=== PATIENT | female | born 1945 | race Caucasian/White ===

== ENCOUNTER 2023-05-27 07:50 | Outpatient (CLI) | payer MEDICARE, OTHER, SELFPAY ==
--- NOTE | 2023-05-27 07:52 | FL_ITS ---
WS: [id number] Upper GI series with air contrast, 05/27/2023 Clinical Data: EPIGASTRIC PAIN/NAUSEA/HX OF HIATAL HERNIA REPAIR Fluoroscopy time: 1.6 minutes Spot films 27 Comparison: None. Findings: The patient swallowed the barium and it flowed normally through the hypopharynx. No aspiration or pen etration occurred. The esophagus showed normal peristalsis. At the gastroesophageal junction there is deformity which may be a result of the patient's previous surgery. There was a reduction in size of the gastroesophageal opening with adjacent surgical clips. No reflux could be seen. No ulceration, ma ss, polyp, fistula or erosion was seen. The barium passed into the stomach. The stomach is well distended without polyp, mass, ulcer or extri nsic deformity. The barium then proceeded into the duodenal bulb without hesitation. No duodenal ulce r could be seen. The descending duodenum filled normally and there was a duodenal diverticulum. There are clips in the right upper quadrant from a cholecystectomy. Impression: 1. Surgery at the gastroesophageal junction 2 reduced the size of the opening and no reflux or obstru ction was seen. 2. Negative stomach and duodenal bulb.
== END 2023-05-27 07:51 | disposition home or self-care (01) ==
LOC: RAD 07:50
PROVIDERS: PCP Family Medicine; Visit Provider Surgery
DX: R10.13 Epigastric pain (principal); Z98.890 Other specified postprocedural states
CPT/HCPCS: 74240

== ENCOUNTER 2024-10-04 11:21 | Outpatient (CLI) | payer MEDICARE, OTHER, SELFPAY ==
--- NOTE | 2024-10-04 11:27 | MM_ITS ---
WS: [id number] BILATERAL SCREENING DIGITAL TOMOSYNTHESIS MAMMOGRAM WITH CAD HISTORY: SCREENING COMPARISON: 08/16/2023, 07/08/2022 Bilateral CC and MLO views with tomosynthesis and synthetic mammography submitted. Computer aided detection analyzed. Breast composition: There are scattered areas of fibroglandular density. No suspicious masses, microcalcifications or architectural distortion. Benign coarse calcifications and arterial calcifications in each breast. MM/MM scr tomosynthesis [id number] IMPRESSION: BI-RADS: 2 - Benign. FOLLOW UP: 1 Year Follow-up
== END 2024-10-04 11:22 | disposition home or self-care (01) ==
LOC: RAD 11:23
PROVIDERS: PCP Family Medicine; Visit Provider Family Medicine
DX: Z12.31 Encounter for screening mammogram for malignant neoplasm of breast (principal); R92.323 Mammographic fibroglandular density, bilateral breasts; R92.1 Mammographic calcification found on diagnostic imaging of breast
CPT/HCPCS: 77063; 77067

== ENCOUNTER 2025-01-12 11:33 | Emergency (ER) | payer MEDICARE, OTHER, SELFPAY ==
[2025-01-12 11:38] VITALS: BP 186/74; PULSE 104; RESP 18; TEMP 36.3; O2SAT 97; BMI 23.4
--- OUTSIDE RECORDS SUMMARY | 2025-01-12 11:39 | XMS_ITS | Clinical Summary ---
Author Organization [facility] Address [address] Ricksn: Epic Prelude ADT ILEANA RUIZ [address] Care Team Providers Care Underwear Welter Name Role Phone Joseluis Mario MD Primary Care Provider [phone] Allergies Active Allergy Reactions Criticality Noted Date Comments Ciprofloxacin Hcl Nausea and Vomiting Low 0 Penicillins Anaphylaxis High 06/11/2010 Sulfamethoxazole-Trimethoprim Unknown 2017 Tramadol Nausea and Vomiting Low 06/11/2010 Medications naproxen (NAPROSYN) 500 mg tablet Take 1 Tablet (500 mg) by mouth 2 times daily with meals. 60 Tablet 3 07/20/2017 Active dicyclomine (BENTYL) 10 mg capsule Take 10 mg by mouth. 07/20/2017 Active lisinopriL (PRINIVIL) 10 mg tablet Take 10 mg by mouth daily. 07/20/2017 Active Active Problems Problem Noted Date Diagnosed Date Hand arthritis 07/20/2017 Social History Tobacco Use Types Packs/Day Years Used Date Smoking Tobacco: Every Day Smokeless Tobacco: Never Comments Unknown Sex and Gender Information Value Date Recorded Sex Assigned at Not on file Legal Sex Female 12:11 AM SPINNER FRAME Gender Identity Not on file Sexual Orientation Not on file Last Filed Vital Signs Vital Sign Reading Time Taken Comments Blood Pressure 116/60 07/20/2017 1:56 PM SPINNER FRAME Pulse 80 07/20/2017 1:56 PM SPINNER FRAME Temperature - - Respiratory Rate - - Oxygen Saturation - - Inhaled Oxygen Concentration - - Weight 65.3 kg (144 lb) 07/20/2017 1:56 PM SPINNER FRAME Height 157.5 cm (5' 2 ) 07/20/2017 1:56 PM SPINNER FRAME Body Mass Index 26.34 07/20/2017 1:56 PM SPINNER FRAME Plan of Treatment Health Maintenance Due Date Last Done Comments DTAP/TDAP/TD VACCINES (1 - Tdap) 1965 PNEUMOCOCCAL VACCINE 50+ YEA RS (1 of 1 - PCV) 02/22/1996 ZOSTER VACCINE (1 of 2) 02/22/1996 RSV VACCINE (60+ or ) (1 - 1-dose 75+ series) 2021 OSTEOPOROSIS SCREENING 06/30/2021 06/30/2016, 2016 INFLUENZA VACCINE (#1) 2025 Procedures Procedure Name Priority Date/Time Associated Diagnosis Comments XR DEXA BONE DENSITY AXIAL 1 OR MORE SITES Routine 06/30/2016 12:00 AM SPINNER FRAME from Last 3 Months or Most Recently Relevant to Health Maintenance Results * XR DEXA BONE DENSITY AXIAL 1 OR MORE SITES (06/30/2016 12:00 AM SPINNER FRAME) Anatomical Region Laterality Modality Other us Abstract Spg Provider DIAGNOSTIC IMAGING ORDERAB LES Final Result from Last 3 Months or Most Recently Relevant to Health Maintenance Care Teams Underwear Welter Relationship Specialty Start Date End Date Joseluis Mario MD [address] [place] [phone] PCP - General Family Practice 07/20/17
--- OUTSIDE RECORDS SUMMARY | 2025-01-12 11:39 | XMS_ITS | Encounter Summary ---
Author Organization [facility] Address [address] [place] [address] Care Team Providers Care Field Crop Farming Supervisor Name Role Phone ShelbiJoseluis dunham MD Primary Care Provider [phone] Encounter Details Date Type Department Care Team (Latest Contact Info) Description 12/07/2000 Outpatient Historical [facility] [address] [place] [address] Carlin Sargent DO [address] [place] [address] Rheumatism, unspecified and fibrositis (Primary Dx); Other and unspecified nonspecific immunological findings; Pain in joint, multiple sites; Generalized osteoarthrosis, involving hand Social History Tobacco Use Types Packs/Day Years Used Date Smoking Tobacco: Never Assessed Comments Unknown Sex and Gender Information Value Date Recorded Sex Assigned at Not on file Legal Sex Female 3:59 AM REGIONAL ACCOUNT DIRECTOR Gender Identity Not on file Sexual Orientation Not on file documented as of this encounter Plan of Treatment Not on file documented as of this encounter Visit Diagnoses Diagnosis Rheumatism, unspecified and fibrositis- Primary Other and unspecified nonspecific immunological findings Pain in joint, multiple sites Generalized osteoarthrosis, involving hand documented in this encounter Care Teams Field Crop Farming Supervisor Relationship Specialty Start Date End Date Joseluis Mario MD PCP - General Family Practice 07/20/17 documented as of this encounter
--- OUTSIDE RECORDS SUMMARY | 2025-01-12 11:39 | XMS_ITS | Encounter Summary ---
Author Organization [facility] Address [address] [place] [address] Care Team Providers Care Taxi Dancer Name Role Phone Joseluis Mario MD Primary Care Provider [phone] Encounter Details Date Type Department Care Team (Late st Contact Info) Description 12/13/2006 Outpatient Historical [facility] Neurology [address], [address] [place] [address] Josh Leon MD [address] [place] [address] Unspecified Hereditary and Idiopathic Peripheral Neuropathy (Primary Dx) Social History Tobacco Use Types Packs/Day Years Used Date Smoking Tobacco: Never Assessed Comments Unknown Sex and Gender Information Value Date Recorded Sex Assigned at Not on file Legal Sex Female 3:59 AM FLAT IRONER Gender Identity Not on file Sexual Orientation Not on file documented as of this encounter Plan of Treatment Not on file documented as of this encounter Visit Diagnoses Diagnosis Unspecified hereditary and idiopathic peripheral neuropathy- Primary documented in this encounter Care Teams Taxi Dancer Relationship Specialty Start Date End Date Joseluis Mario MD PCP - General Family Practice 07/20/17 documented as of this encounter
--- OUTSIDE RECORDS SUMMARY | 2025-01-12 11:39 | XMS_ITS | Encounter Summary ---
Author Organization [facility] Address [address] Wynn: [place] [address] Care Team Providers Care Resistor Testing Machine Operator Name Role Phone ShelbiJoseluis MD Primary Care Provider [phone] Encounter Details Date Type Department Care Team (Late st Contact Info) Description 12/13/2006 Outpatient Historical Josh Leon MD [address] [place] [address] Social History Tobacco Use Types Packs/Day Years Used Date Smoking Tobacco: Never Assessed Comments Unknown Sex and Gender Information Value Date Recorded Sex Assigned at Not on file Legal Sex Female 3:59 AM GLASS FITTER Gender Identity Not on file Sexual Orientation Not on file documented as of this encounter Plan of Treatment Not on file documented as of this encounter Procedures Procedure Name Priority Date/Time Associated Diagnosis Comments IMMUNOFIXATION Routine 12/13/2006 10:00 AM CDT PROTEIN ELECTROPHORESIS W/REFLEX,SERUM Routine 12/13/2006 10:00 AM CDT documented in this encounter Results * (ABNORMAL) PROTEIN ELECTROPHORESIS, SERUM (12/13/2006 10:00 AM CDT) SPE INTERP INTERFACE SYSTEM Comment: Increased beta fraction. No monoclonal gammopathy detected. See immunofixation report. Interpreted by: Freeman Zhu., Ph.D. PROTEIN TOTAL, SPE 7.30 6.10 - 7.80 g/dL INTERFACE SYSTEM ALBUMIN SPE 3.99 3.50 - 5.30 g/dL INTERFACE SYSTEM ALPHA 1 GLOBULIN SPE .31 0.11 - 0.31 INTERFACE SYSTEM ALPHA 2 GLOBULIN SPE .87 0.58 - 1.16 g/dL INTERFACE SYSTEM BETA GLOBULIN .92(H) 0.59 - 0.88 g/dL INTERFACE SYSTEM GAMMA GLOBULIN 1.22 0.50 - 1.35 g/dL INTERFACE SYSTEM ALBUMIN %, 54.7(L) 57.4 - 65.5 % INTERFACE SYSTEM % ALPHA 1 GLOBULIN 4.2(H) 1.8 - 3.8 % INTERFACE SYSTEM % ALPHA 2 GLOBULIN 11.9 9.5 - 14.3 % INTERFACE SYSTEM % Beta Globulin 12.6(H) 9.1 - 10.9 % INTERFACE SYSTEM % GAMMA GLOBULIN 16.7 8.2 - 16.7 % INTERFACE SYSTEM ALBUMIN/GLOBULIN RATIO 1.21 g/dL INTERFACE SYSTEM 12/13/2006 10:0 0 AM CDT Josh Leon MD CHEMISTRY ORDERABLES Edited Performing Organization Address [facility] de Phone Number INTERFACE SYSTEM Refer to clinic/hospital department * IMMUNOFIXATION (12/13/2006 10:00 AM CDT) [facility] IMMUNOFIXATION INTER FACE SYSTEM Comment: No M Band identified. Normal polyclonal immunoglobulins demonstrated. Interpreted by: Freeman Zhu, Ph.D. 12/13/2006 10:0 0 AM CDT Josh Leon MD CHEMISTRY ORDERABLES Edited Performing Organization Address [facility] de Phone Number INTERFACE SYSTEM Refer to clinic/hospital department documented in this encounter Visit Diagnoses Not on filedocumented in this encounter Care Teams Resistor Testing Machine Operator Relationship Specialty Start Date End Date Joseluis Mario MD PCP - General Family Practice 07/20/17 documented as of this encounter
--- OUTSIDE RECORDS SUMMARY | 2025-01-12 11:40 | XMS_ITS | Encounter Summary ---
Author Organization [facility] Address [address] [place] [address] Care Team Providers Care Business Process Manager Name Role Phone Joseluis Mario MD Primary Care Provider [phone] Encounter Details Date Type Department Care Team (Latest Contact Info) Description 05/08/2007 Outpatient Historical [facility] Neurology [address], [address] [place] [address] Josh Leon MD [address] [place] [address] Other B-Complex Deficiencies (Primary Dx) Social History Tobacco Use Types Packs/Day Years Used Date Smoking Tobacco: Never Assessed Comments Unknown Sex and Gender Information Value Date Recorded Sex Assigned at Not on file Legal Sex Female 3:59 AM CAR RENTAL MANAGER Gender Identity Not on file Sexual Orientation Not on file documented as of this encounter Plan of Treatment Not on file documented as of this encounter Visit Diagnoses Diagnosis Other B-complex deficiencies- Primary documented in this encounter Care Teams Business Process Manager Relationship Specialty Start Date End Date Joseluis Mario MD PCP - General Family Practice 07/20/17 documented as of this encounter
--- OUTSIDE RECORDS SUMMARY | 2025-01-12 11:40 | XMS_ITS | Encounter Summary ---
Author Organization [facility] Address [address] [place] [address] Care Team Providers Care Factory Focus Technician Name Role Phone ShelbiJoseluis hair MD Primary Care Provider [phone] Encounter Details Date Type Department Care Team (Late st Contact Info) Description 12/20/2006 Outpatient Historical [facility] Josh Leon MD [address] [place] [address] Unspecified Hereditary and Idiopathic Peripheral Neuropathy (Primary Dx) Social History Tobacco Use Types Packs/Day Years Used Date Smoking Tobacco: Never Assessed Comments Unknown Sex and Gender Information Value Date Recorded Sex Assigned at Not on file Legal Sex Female 3:59 AM ROOFER HELPER Gender Identity Not on file Sexual Orientation Not on file documented as of this encounter Plan of Treatment Not on file documented as of this encounter Procedures Procedure Name Priority Date/Time Associated Diagnosis Comments MISCELLANEOUS LAB TEST Routine 7 12:33 PM CDT documented in this encounter Results * MISCELLANEOUS LAB TEST (12/20/2006 12:33 PM CDT) MISCELLANEOUS LAB TEST INTERFACE SYSTEM Comment: SENSORY NEURO PORFILE SENT TO [facility] SEE SEP REPORT 12/20/2006 12:3 3 PM CDT us Josh Leon MD CHEMISTRY ORDERABLES Edited INTERFACE SYSTEM Refer to clinic/hospital department documented in this encounter Visit Diagnoses Diagnosis Unspecified hereditary and idiopathic peripheral neuropathy- Primary documented in this encounter Care Teams Factory Focus Technician Relationship Specialty Start Date End Date Joseluis Mario MD PCP - General Family Practice 07/20/17 documented as of this encounter
--- OUTSIDE RECORDS SUMMARY | 2025-01-12 11:40 | XMS_ITS | Clinical Summary ---
Author Organization [facility] Address [address] [place] [address] Care Team Providers Care Home Health Billing Specialist Name Role Phone Joseluis Mario MD Primary Care Provider [phone] Allergies Active Allergy Reactions Criticality Noted Date Comments Ciprofloxacin Hcl Nausea and Vomiting Low 0 Penicillins Anaphylaxis High 06/11/2010 Sulfamethoxazole-Trimethoprim Unknown 2017 Tramadol Nausea and Vomiting Low 06/11/2010 Medications fluticasone-ella meterol (ADVAIR DISKUS) 250-50 mcg/dose Inhalation DsDv Take 1 Puff by inhalation 2 times daily. Active cyclobenzaprine (FLEXERIL) 10 mg Oral tablet Take 10 mg by mouth 3 times daily as needed. Active hydrochlorothia zide 25 mg Oral tablet Take 25 mg by mouth daily. Active estradiol (ESTRACE) 2 mg Oral tablet Take 2 mg by mouth daily. Active omeprazole (PRILOSEC) 20 mg Oral TbEC Take 1 Tab by mouth daily. Active aspirin (BHAVIN) 325 mg Oral tablet Take 81 mg by mouth daily . Active lisinopril (PRINIVIL) 10 mg tablet Take 10 mg by mouth daily. Active dicyclomine (BENTYL) 10 mg capsule Take 10 mg by mouth. Active naproxen (NAPROSYN) 500 mg tablet Take 1 Tablet (500 mg) by mouth 2 times daily with meals. 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 Social History Tobacco Use Types Packs/Day Years Used Date Smoking Tobacco: Every Day Smokeless Tobacco: Never Comments No Sex and Gender Information Value Date Recorded Sex Assigned at Not on file Legal Sex Female 3:59 AM FINANCIAL INSTITUTION MANAGER Gender Identity Not on file Sexual Orientation Not on file Last Filed Vital Signs Vital Sign Reading Time Taken Comments Blood Pressure 116/60 07/20/2017 1:56 PM FINANCIAL INSTITUTION MANAGER Pulse 80 07/20/2017 1:56 PM FINANCIAL INSTITUTION MANAGER Temperature - - Respiratory Rate 20 06/11/2010 11:11 AM FINANCIAL INSTITUTION MANAGER Oxygen Saturation - - Inhaled Oxygen Concentration - - Weight 65.3 kg (144 lb) 07/20/2017 1:56 PM FINANCIAL INSTITUTION MANAGER Height 157.5 cm (5' 2 ) 07/20/2017 1:56 PM FINANCIAL INSTITUTION MANAGER Body Mass Index 26.34 07/20/2017 1:56 PM FINANCIAL INSTITUTION MANAGER Plan of Treatment Health Maintenance Due Date Last Done Comments DTAP/TDAP/TD VACCINES (1 - Tdap) 1965 PNEUMOCOCCAL VACCINE 50+ YEARS (1 of 2 - PCV) 02/21/19 65 ZOSTER VACCINE (1 of 2) 02/22/1996 RSV VACCINE (60+ or ) (1 - 1-dose 75+ series) 2021 OSTEOPOROSIS SCREENING 06/30/2021 06/30/2016 INFLUENZA VACCINE (#1) 2025 Procedures Procedure Name Priority Date/Time Associated Diagnosis Comments XR DEXA BONE DENSITY AXIAL 1 OR MORE SITES Routine 06/30/2016 from Last 3 Months or Most Recently Relevant to Health Maintenance Results * XR DEXA BONE DENSITY AXIAL 1 OR MORE SITES (06/30/2016) Anatomical Region Laterality Modality Other us Abstract Spg Provider DIAGNOSTIC IMAGING ORDERAB LES Final Result from Last 3 Months or Most Recently Relevant to Health Maintenance Insurance MEDICARE PART A AND B [facility] [place] [address] Care Teams Home Health Billing Specialist Relationship Specialty Start Date End Date Shelbi, Joseluis Woods MD PCP - General Family Practice 07/20/17
--- OUTSIDE RECORDS SUMMARY | 2025-01-12 11:40 | XMS_ITS | Encounter Summary ---
Author Organization [facility] Address [address] [place] [address] Care Team Providers Care Music Internship Name Role Phone Joseluis Mario MD Primary Care Provider [phone] Encounter Details Date Type Department Care Team (Late st Contact Info) Description 12/20/2006 Outpatient Historical [facility] Imaging Services [address] [place] [address] Social History Tobacco Use Types Packs/Day Years Used Date Smoking Tobacco: Never Assessed Comments Unknown Sex and Gender Information Value Date Recorded Sex Assigned at Not on file Legal Sex Female 3:59 AM OUTPATIENT COORDINATOR Gender Identity Not on file Sexual Orientation Not on file documented as of this encounter Plan of Treatment Not on file documented as of this encounter Procedures Procedure Name Priority Date/Time Associated Diagnosis Comments MRI LUMBAR W WO CONTRAST Routine 12/20/2006 12:01 AM CDT documented in this encounter Results * MRI LUMBAR W WO CONTRAST (12/20/2006 12:01 AM CDT) Anatomical Region Laterality Modality Spine Other 12/20/2006 12:0 1 AM CDT Narrative 12/20/2006 12:01 AM CDT LUMBAR SPINE MRI WITHOUT AND WITH CONTRAST. History: Bilateral lower extremity numbness. Technique: The examination has been performed without contrast and with 15 ml of Optimark. Findings: No prior studies. Normal height and alignment of the lumbar vertebrae. A small focus of decreased T1 and increased I8aagsam in the right L5 pedicle likely represents a small subcortical degenerative cyst. Marrowsignal is otherwise unremarkable. The conus and cauda equina are normal. The L1-2 and L2-3 levels are unremarkable. L3-4: Mild disc bulge and facet degenerative changes. L4-5: No disc bulge or protrusion. Mild facet degenerative changes. L5-S1: No disc bulge or protrusion. Mild facet degenerative changes. The postcontrast images are unremarkable. Impression: 1. Mild degenerative changes without significant central canal or foraminal stenosis. - Dictated By: Fei Mcfadden M.D. Electronically Signed By: Fei Mcfadden M.D. Date Signed: 12/20/06 Procedure Note 05/17/2009 LUMBAR SPINE MRI WITHOUT AND WITH CONTRAST. History: Bilateral lower extremity numbness. Technique: The examination has been performed without contrast and with 15 ml ofOptimark. Findings: No prior studies. Normal height and alignment of the lumbar vertebrae. A small focus ofdecreased T1 and increased R6hnytck in the right L5 pedicle likely represents a small subcorticaldegenerative cyst. Marrowsignal is otherwise unremarkable. The conus and cauda equina are normal. The L1-2 and L2-3 levels are unremarkable. L3-4: Mild disc bulge and facet degenerative changes. L4-5: No disc bulge or protrusion. Mild facet degenerative changes. L5-S1: No disc bulge or protrusion. Mild facet degenerative changes. The postcontrast images are unremarkable. Impression: 1. Mild degenerative changes without significant central canal orforaminal stenosis. - Dictated By: Fei Mcfadden M.D. Electronically Signed By: Fei Mcfadden M.D. Date Signed: 12/20/06 us Josh Leon MD MR ORDERABLES Final Resul t documented in this encounter Visit Diagnoses Not on filedocumented in this encounter Care Teams Music Internship Relationship Specialty Start Date End Date Shelbi, Joseluis Woods MD PCP - General Family Practice 07/20/17 documented as of this encounter
--- OUTSIDE RECORDS SUMMARY | 2025-01-12 11:40 | XMS_ITS | Encounter Summary ---
Author Organization [facility] Address [address] [place] [address] Care Team Providers Care Sludge Mill Operator Name Role Phone ShelbiJoseluis hair MD Primary Care Provider [phone] Encounter Details Date Type Department Care Team (Latest Contact Info) Description 12/20/2006 Outpatient Historical [facility] Imaging Services [place] [id number] 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) Social History Tobacco Use Types Packs/Day Years Used Date Smoking Tobacco: Never Assessed Comments Unknown Sex and Gender Information Value Date Recorded Sex Assigned at Not on file Legal Sex Female 3:59 AM MULTI SITE LEASING CONSULTANT Gender Identity Not on file Sexual Orientation Not on file documented as of this encounter Plan of Treatment Not on file documented as of this encounter Visit Diagnoses Diagnosis Displacement of lumbar intervertebral disc without myelopathy- Primary documented in this encounter Care Teams Sludge Mill Operator Relationship Specialty Start Date End Date Joseluis Mario MD PCP - General Family Practice 07/20/17 documented as of this encounter
--- OUTSIDE RECORDS SUMMARY | 2025-01-12 11:40 | XMS_ITS | Encounter Summary ---
Author Organization [facility] Address [address] [place] [address] Care Team Providers Care Airline Reservation Agent Name Role Phone Joseluis Mario MD Primary Care Provider Encounter Details Date Type Department Care Team (Late st Contact Info) Description 03/24/2007 Outpatient Historical [facility] Neurology [address] [place] [address] Josh Leon MD [address] [place] [address] Hered Periph Neuropathy (Primary Dx) Social History Tobacco Use Types Packs/Day Years Used Date Smoking Tobacco: Never Assessed Comments Unknown Sex and Gender Information Value Date Recorded Sex Assigned at Not on file Legal Sex Female 3:59 AM REHAB TECHNICIAN Gender Identity Not on file Sexual Orientation Not on file documented as of this encounter Plan of Treatment Not on file documented as of this encounter Visit Diagnoses Diagnosis Hered periph neuropathy- Primary Hereditary peripheral neuropathy documented in this encounter Care Teams Airline Reservation Agent Relationship Specialty Start Date End Date Joseluis Mario MD PCP - General Family Practice 07/20/17 documented as of this encounter
--- NOTE | 2025-01-12 12:00 | XRR_ITS ---
PROCEDURE INFORMATION: Exam: XR Chest Exam date and time: 01/12/2025 12:12 PM Age: 79 years old Clinical indication: Fluid retention; Pedal edema TECHNIQUE: Imaging protocol: Radiologic exam of the chest. Views: 1 view. COMPARISON: No relevant prior studies available. FINDINGS: Lungs: Mild opacities at the left lung base. Focal linear scar or discoid atelectasis in the left midlung. Pleural spaces: Small right pleural effusion. Heart/Mediastinum: Unremarkable. No cardiomegaly. Bones/joints: Unremarkable. Intraperitoneal space: Surgical clips in the right upper quadrant. XR/XR chest 1V portable [id number] IMPRESSION: Small right pleural effusion and mild opacities at the left lung base.
--- NOTE | 2025-01-12 12:00 | W.ED.EXTPRO ---
HPI - Extremity Problem General: Chief complaint: Extremity Problem,Nontraumatic Stated complaint: pain in both legs Time Seen by Provider: 01/12/25 11:46 History of Present Illness: Patient presents with bilateral lower extremity swelling and skin changes that have been ongoing for approximately 2-3 months. The patient reports that previous providers diagnosed this as cellulitis and prescribed multiple courses of antibiotics (reportedly 'two rounds') without improvement. Patient denies fever but reports experiencing chills. The swelling extends to the knees, which the patient describes as 'terrible.' The condition has been present for about a month according to the patient. Patient denies weight gain despite the significant edema. Patient reports that their current provider has not prescribed diuretics due to low sodium levels, though the exact value is unknown. The patient expresses dissatisfaction with current treatment, stating that their provider has changed blood pressure medications three times and prescribed three different antibiotics without resolution of symptoms. Related Data Home Medications ?Medication ?Instructions ?Recorded ?Confirmed aspirin 81 mg tablet,delayed 81 mg PO DAILY 04/21/20 04/21/20 release (Adult Low Dose Aspirin) estradiol 1 mg tablet 1 mg PO DAILY 04/21/20 04/21/20 ferrous fumarate 325 mg (106 mg PO 04/21/20 04/21/20 iron) tablet fluticasone 250 mcg-salmeterol 50 1 inh inhalation BID 04/21/20 04/21/20 mcg/dose blistr powdr for inhalation (Advair Diskus) lisinopril 20 mg tablet 20 mg PO DAILY 04/21/20 04/21/20 Previous Rx's ?Medication ?Instructions ?Recorded cyclobenzaprine 5 mg tablet 5 mg PO BID PRN muscle spasm #7 04/21/20 tabs furosemide 20 mg tablet (Lasix) 20 mg PO DAILY #30 tabs 01/12/25 Allergies Allergy/AdvReac Type Severity Reaction Status Date / Time amlodipine Allergy ADR-Vomitin Verified 01/12/25 11:38 g ciprofloxacin (From Cipro) Allergy ADR-Vomitin Verified 01/12/25 11:38 g meloxicam Allergy ADR-Vomitin Verified 01/12/25 11:38 g naproxen Allergy ADR-Vomitin Verified 01/12/25 11:38 g Penicillins Allergy ALGY-Difficulty Verified 01/12/25 11:38 Breathing sulfamethoxazole (From Allergy ADR-Vomitin Verified 01/12/25 11:38 Bactrim) g tramadol (From Ultram) Allergy ADR-Vomitin Verified 01/12/25 11:38 g trimethoprim (From Bactrim) Allergy ADR-Vomitin Verified 01/12/25 11:38 g Review of Systems General: Reports: 10 or more systems reviewed and unremarkable except in HPI and below PFSH ED PFSH: Social History Smoking and tobacco/nicotine status: former use of tobacco/nicotine Physical Exam Const: COMMON NORMALS: no acute distress, patient oriented x3, alert and well nourished HENMT: COMMON NORMALS: normocephalic HEAD & SCALP: normocephalic Eye: COMMON NORMALS: Equal, round and reactive pupils present, EOMs intact bilaterally and conjunctivae normal CONJUNCTIVA: Yes conjunctivae normal PUPIL: Yes Equal, round and reactive pupils present Chest: COMMONS NORMALS: normal inspection of the chest and normal palpation of entire chest wall Resp: COMMON NORMALS: normal respiratory effort, No retractions, No use of accessory muscles, clear to auscultation bilaterally and percussion normal AUSCULTATION: clear to auscultation bilaterally PERCUSSION: percussion normal GI: COMMON NORMALS: Normal to inspection, nondistended, normoactive bowel sounds present, Soft to palpation, non-tender, No hepatosplenomegaly present, no masses and no bruits PALPATION: Yes Soft to palpation and Yes No hepatosplenomegaly present Extremity: NARRATIVE EXTREMITY EXAM: Bilateral erythema and 4+ pitting edema to knees Neuro: COMMON NORMALS: patient oriented x3 SENSORIUM/ORIENTATION: Yes alert Skin: COMMON NORMALS: no rashes or lesions noted, turgor normal and no jaundice GENERAL SKIN EXAM: no rashes or lesions noted and turgor normal Course Vital Signs: Vital signs: Vital Signs Temperature 97.4 F L 01/12/25 11:38 Pulse Rate 104 H 01/12/25 11:38 Respiratory Rate 18 01/12/25 11:38 Blood Pressure 186/74 01/12/25 11:38 Pulse Oximetry 97 01/12/25 11:38 MDM - Extremity (Nontraumatic) Medical Decision Making 1. Bilateral Lower Extremity Edema with Stasis Dermatitis: - Clinical presentation more consistent with stasis dermatitis rather than cellulitis - Bilateral involvement and lack of fever make infection less likely - Significant fluid retention noted despite patient's report of stable weight 2. Possible Hyponatremia: - Patient reports history of low sodium levels - Will check comprehensive metabolic panel to assess current sodium status - Need to balance diuretic therapy with electrolyte management 3. Plan: - Order blood work including CBC with differential, CMP, and inflammatory markers - Consider trial of Lasix 40mg for edema management, pending lab results - Discuss compression therapy and elevation strategies - Consider referral to physical therapy for mobility and edema management - Follow up after lab results to adjust treatment plan accordingly Patient's x-ray showed small pleural effusion her presentation really not consistent with infection. Patient likely has at least diastolic heart failure with stasis dermatitis. Will start her on a diuretic and have to monitor renal function and sodium level closely. Start compression hose and follow-up will outline instructions or precautions as discussed. Lab Data 01/12/25 12:12 01/12/25 12:12 Radiology Impressions Chest X-Ray 01/12/25 12:00 IMPRESSION: Small right pleural effusion and mild opacities at the left lung base. Laboratory Results WBC 6.87 10^3/uL (3.29-11.43) 01/12/25 12:12 RBC 3.27 10^6/uL (3.85-5.65) L 01/12/25 12:12 Hgb 10.10 g/dL (11.27-16.99) L 01/12/25 12:12 Hct 30.0 % (36-47) L 01/12/25 12:12 MCV 91.7 fl (85-98) 01/12/25 12:12 MCH 30.9 pg (27-33) 01/12/25 12:12 MCHC 33.7 g/dL (30-55) 01/12/25 12:12 RDW 12.9 % (12.1-15.1) 01/12/25 12:12 Plt Count 253 10^3/cmm (157-399) 01/12/25 12:12 MPV 8.3 fL (7.4-10.4) 01/12/25 12:12 Neut % (Auto) 64.2 % 01/12/25 12:12 Lymph % (Auto) 21.1 % 01/12/25 12:12 [place] % (Auto) 10.9 % 01/12/25 12:12 Eos % (Auto) 2.0 % 01/12/25 12:12 Baso % (Auto) 1.7 % 01/12/25 12:12 Neut # (Auto) 4.40 10^3/uL (1.8-7.7) 01/12/25 12:12 Lymph # (Auto) 1.5 10^3/uL (0.8-4.8) 01/12/25 12:12 [place] # (Auto) 0.8 10^3/uL (0.2-0.9) 01/12/25 12:12 Eos # (Auto) 0.1 10^3/uL (0.0-0.8) 01/12/25 12:12 Baso # (Auto) 0.1 10^3/uL (0.0-0.1) 01/12/25 12:12 Nucleated RBC % (auto) 0 % 01/12/25 12:12 Nucleated RBCs # 0.0 /100WBC 01/12/25 12:12 Sodium 127 mmol/L (136-145) L 01/12/25 12:12 Potassium 4.9 mmol/L (3.5-5.1) 01/12/25 12:12 Chloride 93 mmol/L (98-107) L 01/12/25 12:12 Carbon Dioxide 20 mmol/L (22-29) L 01/12/25 12:12 Anion Gap 18.9 (5-19) 01/12/25 12:12 BUN 15 mg/dL (8-23) 01/12/25 12:12 Creatinine 1.0 mg/dL (0.5-0.9) H 01/12/25 12:12 GFR Calculation Not Reportable 01/12/25 12:12 Glucose 103 mg/dL (65-115) 01/12/25 12:12 Calculated Osmolality 265 mOsm/kg (285-295) L 01/12/25 12:12 Calcium 9.3 mg/dL (8.5-10.5) 01/12/25 12:12 Total Bilirubin 0.5 mg/dL (0.15-1.2) 01/12/25 12:12 AST 29 U/L (0-32) 01/12/25 12:12 ALT 15 U/L (0-33) 01/12/25 12:12 Alkaline Phosphatase 157 U/L (35-105) H 01/12/25 12:12 C-Reactive Protein 11.5 mg/L (0.0-4.9) H 01/12/25 12:12 NT-Pro-B Natriuret Pep 6496 pg/mL (0-450) H 01/12/25 12:12 Total Protein 7.1 g/dL (6.6-8.7) 01/12/25 12:12 Albumin 3.8 g/dL (3.5-5.2) 01/12/25 12:12 Globulin 3.3 g/dL (1.3-4.6) 01/12/25 12:12 No radiology studies performed this visit Discharge Plan Discharge Patient Disposition: Home Clinical Impression: Lower extremity edema, Chronic stasis dermatitis Condition: Stable Prescriptions: New furosemide [Lasix] 20 mg tablet 20 mg PO DAILY Qty: 30 0RF No Action aspirin [Adult Low Dose Aspirin] 81 mg tablet,delayed release (DR/EC) 81 mg PO DAILY lisinopril 20 mg tablet 20 mg PO DAILY estradiol 1 mg tablet 1 mg PO DAILY Rx Instructions: off 1 week; repeat cycle ferrous fumarate 325 mg (106 mg iron) tablet PO fluticasone propion-salmeterol [Advair Diskus] 250-50 mcg/dose blister with device 1 inh INHALATION BID cyclobenzaprine 5 mg tablet 5 mg PO BID PRN (Reason: muscle spasm) Qty: 7 0RF Discharge Orders: Discharge ED (Routine); Ordered 01/12/25 Ordered By: Gera Rob Referrals: Ortega Pastrana MD [Primary Care Provider, Family Practice] Discharge Diet: Regular Discharge Activity: Resume usual activity Patient Instructions: Opioid Safety, Pain Management, Patient Portal & Moris Instructions Activity Restrictions/Additional Instructions: 1. Take Rx as directed. Wear compression hose. Weigh daily. 2. Follow up with PCP - will need repeat BMP / Sodium level in 7-10 days. 3. Return to ED for high fever, general worsening. Print Language: Armenian Coding Level of Care Code ED [employer] Tutor for Dandy Hancock
[2025-01-12 12:28] LABS: Hematocrit 30.0 % (36-47); Hemoglobin 10.10 g/dL (11.27-16.99); Mean Corpuscular HGB Conc 33.7 g/dL (30-55); Mean Corpuscular Hemoglobin 30.9 pg (27-33); Mean Corpuscular Volume 91.7 fl (85-98); Nucleated Red Blood Cells % 0 %; Platelet Count 253 10^3/cmm (157-399); Red Blood Count 3.27 10^6/uL (3.85-5.65); White Blood Count 6.87 10^3/uL (3.29-11.43)
[2025-01-12 12:54] LABS: Alanine Aminotransferase 15 U/L (0-33); Albumin Level 3.8 g/dL (3.5-5.2); Alkaline Phosphatase 157 U/L (35-105); Anion Gap 18.9 (5-19); Aspartate Amino Transferase 29 U/L (0-32); Blood Urea Nitrogen 15 mg/dL (8-23); Calcium 9.3 mg/dL (8.5-10.5); Carbon Dioxide 20 mmol/L (22-29); Chloride 93 mmol/L (98-107); Creatinine Clr Calc Pharmacy 37.4595; Globulin 3.3 g/dL (1.3-4.6); Glucose 103 mg/dL (65-115); NT Pro B Type Natriuretic Pept 6496 pg/mL (0-450); Osmolality Calculated 265 mOsm/kg (285-295); Potassium 4.9 mmol/L (3.5-5.1); Sodium 127 mmol/L (136-145); Total Protein 7.1 g/dL (6.6-8.7)
== END 2025-01-12 14:19 | disposition home or self-care (01) ==
PROVIDERS: Emergency Provider Family Medicine; PCP Family Medicine
DX: R60.0 Localized edema (principal); I87.2 Venous insufficiency (chronic) (peripheral); Z87.891 Personal history of nicotine dependence
CPT/HCPCS: 36415; 71045; 80053; 83880; 85025; 86140; 99284

== ENCOUNTER → 2025-01-14 14:10 | Outpatient (BNVA) | payer MEDICARE, OTHER, SELFPAY | PROVIDERS: Visit Provider Family Medicine | DX: I10 Essential (primary) hypertension (principal); I87.2 Venous insufficiency (chronic) (peripheral); E87.1 Hypo-osmolality and hyponatremia; D64.9 Anemia, unspecified; R60.0 Localized edema | CPT/HCPCS: 80053; 82607; 82728; 83550; 83735; 83880; 84443; 85025 ==

== ENCOUNTER 2025-02-04 13:52 | Oncology outpatient (recurring) (ONCR) | payer MEDICARE, OTHER, SELFPAY ==
[2025-02-04 15:01] LABS: Hematocrit 29.8 % (36-47); Hemoglobin 10.00 g/dL (11.27-16.99); Mean Corpuscular HGB Conc 33.6 g/dL (30-55); Mean Corpuscular Hemoglobin 30.4 pg (27-33); Mean Corpuscular Volume 90.6 fl (85-98); Nucleated Red Blood Cells % 0 %; Platelet Count 213 10^3/cmm (157-399); Red Blood Count 3.29 10^6/uL (3.85-5.65); White Blood Count 6.73 10^3/uL (3.29-11.43)
[2025-02-04 15:20] LABS: Alanine Aminotransferase 20 U/L (0-33); Albumin Level 4.1 g/dL (3.5-5.2); Alkaline Phosphatase 179 U/L (35-105); Anion Gap 13.9 (5-19); Aspartate Amino Transferase 34 U/L (0-32); Blood Urea Nitrogen 25 mg/dL (8-23); Calcium 9.0 mg/dL (8.5-10.5); Carbon Dioxide 24 mmol/L (22-29); Chloride 88 mmol/L (98-107); Creatinine Clr Calc Pharmacy 30.6629; Globulin 3.0 g/dL (1.3-4.6); Glucose 109 mg/dL (65-115); Osmolality Calculated 257 mOsm/kg (285-295); Potassium 4.9 mmol/L (3.5-5.1); Sodium 121 mmol/L (136-145); Total Protein 7.1 g/dL (6.6-8.7)
[2025-02-04 15:35] LABS: Vitamin B12 228 pg/mL (232-1245)
[2025-02-05 08:24] LABS: PROTEIN, TOTAL 7.0 g/dL (6.1-8.1)
[2025-02-06 21:29] LABS: ALPHA 1 GLOBULIN 0.3 g/dL (0.2-0.3); ALPHA 2 GLOBULIN 0.7 g/dL (0.5-0.9); BETA 1 GLOBULIN 0.4 g/dL (0.4-0.6); BETA 2 GLOBULIN 0.4 g/dL (0.2-0.5)
== END 2025-02-24 23:59 | disposition home or self-care (01) ==
PROVIDERS: PCP Family Medicine; Visit Provider Internal Medicine Medical Oncology
DX: D64.9 Anemia, unspecified (principal); Z87.891 Personal history of nicotine dependence
CPT/HCPCS: 36415; 80053; 82607; 82746; 83010; 83615; 84155; 84165; 85025; 85045; 86880; 99204

== ENCOUNTER 2025-02-12 08:49 | Outpatient (CLI) | payer MEDICARE, OTHER, SELFPAY ==
--- NOTE | 2025-02-12 12:00 | USCV_ITS ---
Gladis Frausto Age: 79 Gender: F : 1945 Exam Date: 02/12/2025 09:10 Ordering Phys: Talya Pan MD Technologist: MARIANELA [place] [facility] [place]ication: CHF BP: 152 / 65 HR: 79 Rhythm: Sinus Technical Quality: Adequate MEASUREMENTS (Male / Female) Normal Values 2D ECHO LV Diastolic Diameter PLAX 4.7 cm 4.2 - 5.9 / 3.9 - 5.3 cm IVS Diastolic Thickness 0.7 cm 0.6 - 1.0 / 0.6 - 0.9 cm IVS Systolic Thickness 1.2 cm LVPW Diastolic Thickness 1.0 cm 0.6 - 1.0 / 0.6 - 0.9 cm LVPW Systolic Thickness 1.3 cm LVOT Diameter 2.0 cm LV Ejection Fraction 2D Teich 58.5 % LV Ejection Fraction MOD 4C 69.0 % LV Ejection Fraction MOD 2C 72.3 % LV Ejection Fraction 2C AL 74.5 % LA Diameter 4.4 cm RA Systolic Volume 4C AL 43.3 ml RA Systolic Volume 4C MOD 41.7 ml LA Sys Volume AL 72.6 cm cubed LA Sys Volume Index AL 46.2 cm cubed/m squared Aorta at Sinotubular Diameter 2.8 cm IVC Diameter 1.4 cm M-MODE LA Ao Ratio MM 1.5 AV Cusp Separation MM 1.4 cm DOPPLER AV Peak Velocity 157.0 cm/s LVOT Peak Velocity 130.0 cm/s AV Area Cont Eq vti 2.8 cm squared AV Area Cont Eq pk 2.6 cm squared MV Peak Velocity 168.0 cm/s MV Area PHT 5.9 cm squared Mitral E to A Ratio 1.3 TR Peak Velocity 323.0 cm/s TR Peak Gradient 41.7 mmHg TV Peak E Velocity 86.0 cm/s PV Peak Velocity 139.0 cm/s FINDINGS Left Ventricle Normal left ventricular size, systolic function and wall thickness, with no regional wall motion abnormalities. Left ventricular ejection fraction is estimated at 60 %. Grade I/IV diastolic dysfunction (abnormal relaxation filling pattern), normal to mildly elevated filling pressures. Right Ventricle The right ventricle is normal in size and function. Right Atrium The right atrium is normal in size. Left Atrium Moderately increased left atrial size. Mitral Valve Mildly thickened mitral valve. No mitral valve stenosis. Moderate mitral valve regurgitation. Aortic Valve Mild aortic valve calcification. No aortic valve stenosis. Mild aortic valve regurgitation. Tricuspid Valve No tricuspid valve stenosis. Moderate tricuspid valve regurgitation. Pulmonic Valve Mild pulmonary valve regurgitation. Pericardium Normal pericardium without effusion. Aorta Normal ascending aorta dimension. IVC The inferior vena cava appears normal. CONCLUSIONS Normal left ventricular size, systolic function and wall thickness, with no regional wall motion abnormalities. Left ventricular ejection fraction is estimated at 60 %. Grade I/IV diastolic dysfunction (abnormal relaxation filling pattern), normal to mildly elevated filling pressures. Mild aortic valve calcification. No aortic valve stenosis. Mild aortic valve regurgitation. Moderately increased left atrial size. Mildly thickened mitral valve. No mitral valve stenosis. Moderate mitral valve regurgitation. No tricuspid valve stenosis. Moderate tricuspid valve regurgitation. There is no pericardial effusion. Right atrial pressure is around 10 mm of mercury. Meet Knight MD (Electronically Signed) Final Date: 13 February 2025 14:28 S
== END 2025-02-12 08:50 | disposition home or self-care (01) ==
LOC: RAD 08:50
PROVIDERS: PCP Family Medicine; Visit Provider Family Medicine
DX: R60.0 Localized edema (principal); I87.2 Venous insufficiency (chronic) (peripheral); I08.3 Combined rheumatic disorders of mitral, aortic and tricuspid valves
CPT/HCPCS: 93306

== ENCOUNTER 2025-03-04 14:30 | Oncology outpatient (recurring) (ONCR) | payer MEDICARE, OTHER, SELFPAY | END 2025-03-26 23:59 | disposition home or self-care (01) | PROVIDERS: PCP Family Medicine; Visit Provider Internal Medicine Medical Oncology | DX: D64.9 Anemia, unspecified (principal); R03.0 Elevated blood-pressure reading, without diagnosis of hypertension; E87.1 Hypo-osmolality and hyponatremia; Z87.891 Personal history of nicotine dependence; Z79.899 Other long term (current) drug therapy | CPT/HCPCS: 99213 ==

== ENCOUNTER → 2025-03-11 15:58 | Outpatient (BNVA) | payer MEDICARE, OTHER, SELFPAY | PROVIDERS: PCP Family Medicine; Visit Provider Family Medicine | DX: E87.1 Hypo-osmolality and hyponatremia (principal) | CPT/HCPCS: 80053 ==

== ENCOUNTER → 2025-03-21 09:32 | Outpatient (BNVA) | payer MEDICARE, OTHER, SELFPAY | PROVIDERS: PCP Family Medicine; Visit Provider Registered Nurse Neonatal Intensive Care | DX: R39.9 Unspecified symptoms and signs involving the genitourinary system (principal) | CPT/HCPCS: 81000; 87077; 87086; 87184 ==

== ENCOUNTER → 2025-04-22 13:00 | Outpatient (BNVA) | payer MEDICARE, OTHER, SELFPAY | PROVIDERS: PCP Family Medicine; Visit Provider Family Medicine | DX: E87.1 Hypo-osmolality and hyponatremia (principal) | CPT/HCPCS: 80053 ==

== ENCOUNTER 2025-05-28 16:23 | Inpatient (IN) | payer MEDICARE, OTHER, SELFPAY ==
[2025-05-28 16:27] VITALS: BP 132/72; PULSE 97; RESP 16; TEMP 36.8; O2SAT 96; BMI 21.7
--- NOTE | 2025-05-28 17:15 | CTR_ITS ---
PROCEDURE INFORMATION: Exam: CT Head Without Contrast Exam date and time: 05/28/2025 5:34 PM Age: 80 years old Clinical indication: Weakness, extremity; Additional info: Weakness x 1 week TECHNIQUE: Imaging protocol: Computed tomography of the head without contrast. Radiation optimization: All CT scans at this facility use at least one of these dose optimization techniques: automated exposure control; mA and/or kV adjustment per patient size (includes targeted exams where dose is matched to clinical indication); or iterative reconstruction. COMPARISON: No relevant prior studies available. RADIATION DOSE METRICS: Total DLP (mGy-cm): 958.22 FINDINGS: Brain: Age-indeterminate region of decreased attenuation in the left basal ganglia. Correlate clinically for symptoms of acute or subacute stroke. No priors to compare. Periventricular and deep white matter hypodensities compatible with chronic microvascular ischemic changes. No acute intracranial hemorrhage. No midline shift. Cerebral ventricles: No ventriculomegaly. Paranasal sinuses: Visualized sinuses are unremarkable. No fluid levels. Mastoid air cells: No mastoid effusion. Bones: Unremarkable. No acute fracture. Soft tissues: Unremarkable. CT/CT head wo con* [id number] IMPRESSION: Age-indeterminate region of decreased attenuation in the left basal ganglia. Correlate clinically for symptoms of acute or subacute stroke. No priors to compare. Otherwise evaluation with CTA or MRI is recommended.
--- NOTE | 2025-05-28 17:20 | ECG_ITS ---
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 Measurements Intervals [place] Rate: 110 P: 55 PA: 173 QRS: 3 QRSD: 74 T: 52 QT: 308 QTc: 418 Interpretive Statements SINUS TACHYCARDIA POSSIBLE LEFT ATRIAL ENLARGEMENT [-0.1mV P-WAVE IN V1/V2] ABNORMAL RHYTHM ECG No previous ECG available for comparison Electronically Signed On 05-28-2025 18:55:52 SENIOR CLINICAL DATA ANALYST by Sherri Corrales M.D. [id number]
--- OUTSIDE RECORDS SUMMARY | 2025-05-28 17:29 | XMS_ITS | Clinical Summary ---
Author Organization [facility] Address [address] [place] [address] Care Team Providers Care Green End Man Name Role Phone Joseluis Mario MD Primary Care Provider Ebony levy Allergies Active Allergy Reactions Criticality Noted Date [...] on file Legal Sex Female 3:59 AM OPERATIONS WELDER Gender Identity Not on file Sexual Orientation Not on file Last Filed Vital Signs Vital Sign Reading Time Taken Comments Blood Pressure 116/60 07/20/2017 1:56 PM OPERATIONS WELDER Pulse 80 07/20/2017 1:56 PM OPERATIONS WELDER Temperature - - Respiratory Rate 20 06/11/2010 11:11 AM OPERATIONS WELDER Oxygen Saturation - - Inhaled Oxygen Concentration - - Weight 65.3 kg (144 lb) 07/20/2017 1:56 PM OPERATIONS WELDER Height 157.5 cm (5' 2 ) 07/20/2017 1:56 PM OPERATIONS WELDER Body Mass Index 26.34 07/20/2017 1:56 PM OPERATIONS WELDER Plan of Treatment Health Maintenance Due Date [...] Insurance MEDICARE PART A AND B [employer] [facility] [address] Care Teams Green End Man Relationship Specialty Start Date End Date Shelbi, Joseluis Woods MD PCP - General Family Practice 07/20/17
--- OUTSIDE RECORDS SUMMARY | 2025-05-28 17:29 | XMS_ITS | Encounter Summary ---
Author Organization [facility] Address [address] 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 Normal polyclonal immunoglobulins demonstrated. Interpreted by: Freeman Zhu, Ph.D. 12/13/2006 10:0 0 AM CDT Josh Leon MD CHEMISTRY ORDERABLES Edited Performing Organization Address City/State/[facility] Co de Phone Number INTERFACE SYSTEM Refer to clinic/hospital department documented in this encounter Visit Diagnoses Not on filedocumented in this encounter Care Teams Associate Consulting Engineer Relationship Specialty Start Date End Date Joseluis Mario MD PCP - General Family Practice 07/20/17 documented as of this encounter
--- OUTSIDE RECORDS SUMMARY | 2025-05-28 17:29 | XMS_ITS | Encounter Summary ---
Author Organization [facility] Address [address] [place] [address] Care Team Providers Care Recreation Technician Name Role Phone Joseluis Mario MD Primary Care Provider Ebony levy Encounter Details Date Type Department Care Team (Late st Contact Info) Description 03/24/2007 Outpatient Historical [facility] Neurology [address], [address] [place] [address] Josh Leon MD [address] [place] [phone] Hered Periph Neuropathy (Primary Dx) Social History Tobacco Use Types Packs/Day Years Used Date Smoking Tobacco: Never Assessed Comments Unknown Sex and Gender Information Value Date Recorded Sex Assigned at Not on file Legal Sex Female 3:59 AM 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
--- OUTSIDE RECORDS SUMMARY | 2025-05-28 17:29 | XMS_ITS | Encounter Summary ---
Author Organization [facility] Address [address] [place] [address] Care Team Providers Care Fruit And Vegetable Classer Name Role Phone Joseluis Mario MD Primary Care Provider Ebony levy Encounter Details Date Type Department Care Team (Latest Contact Info) Description 05/08/2007 Outpatient Historical [facility] Neurology [address], [address] [place] [address] Josh Leon MD [address] [place] [id number] Other B-Complex Deficiencies (Primary Dx) Social History Tobacco Use Types Packs/Day Years Used Date Smoking Tobacco: Never Assessed Comments Unknown Sex and Gender Information Value Date Recorded Sex Assigned at Not on file 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
--- OUTSIDE RECORDS SUMMARY | 2025-05-28 17:29 | XMS_ITS | Encounter Summary ---
Author Organization [facility] Address [address] [place] [address] Care Team Providers Care Rivet Hole Puncher Name Role Phone Joseluis Mario MD Primary Care Provider Ebony levy Encounter Details Date Type Department Care Team (Late st Contact Info) Description 12/13/2006 Outpatient [place] [facility] [address], [address] [place] [address] Josh Leon MD [address] [place] [id number] Unspecified Hereditary and Idiopathic Peripheral Neuropathy (Primary Dx) Social History Tobacco Use Types Packs/Day Years Used Date Smoking Tobacco: Never Assessed Comments Unknown Sex and Gender Information Value Date Recorded Sex Assigned at Not on file Legal Sex Female 3:59 AM 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
--- OUTSIDE RECORDS SUMMARY | 2025-05-28 17:29 | XMS_ITS | Clinical Summary ---
Author Organization [facility] Address [address] Ricksn: Epic Prelude ADT [place]LEANA RUIZ [address] Care Team Providers Care Custodial Services Manager Name Role Phone ShelbiJoseluis MD Primary Care Provider Ebony levy Allergies [...] on file Legal Sex Female 12:11 AM COOKING SHOW HOST Gender Identity Not on file Sexual Orientation Not on file Last Filed Vital Signs Vital Sign Reading Time Taken Comments Blood Pressure 116/60 07/20/2017 1:56 PM COOKING SHOW HOST Pulse 80 07/20/2017 1:56 PM COOKING SHOW HOST Temperature - - Respiratory Rate - - Oxygen Saturation - - Inhaled Oxygen Concentration - - Weight 65.3 kg (144 lb) 07/20/2017 1:56 PM COOKING SHOW HOST Height 157.5 cm (5' 2 ) 07/20/2017 1:56 PM COOKING SHOW HOST Body Mass Index 26.34 07/20/2017 1:56 PM COOKING SHOW HOST Plan of Treatment Health Maintenance Due Date [...] OR MORE SITES Routine 06/30/2016 12:00 AM COOKING SHOW HOST from Last 3 Months or Most Recently Relevant to Health Maintenance Results * XR DEXA BONE DENSITY AXIAL 1 OR MORE SITES (06/30/2016 12:00 AM COOKING SHOW HOST) Anatomical Region Laterality Modality Other us Abstract Spg Provider DIAGNOSTIC IMAGING ORDERAB LES Final Result from Last 3 Months or Most Recently Relevant to Health Maintenance Care Teams Custodial Services Manager Relationship Specialty Start Date End Date ShelbiJoseluis MD PCP - General Family Practice 07/20/17
--- OUTSIDE RECORDS SUMMARY | 2025-05-28 17:29 | XMS_ITS | Encounter Summary ---
Author Organization [facility] Address [address] [place] [address] Care Team Providers Care Public [employer] Teacher Name Role Phone ShelbiJoseluis dunham MD Primary Care Provider Ebony levy Encounter Details Date Type Department Care Team (Latest Contact Info) Description 12/07/2000 Outpatient Historical [facility] [address] [place] [id number] Carlin Sargnet, DO [address] [facility] [address] [place] [address] Rheumatism, unspecified and fibrositis (Primary Dx); Other and unspecified nonspecific immunological findings; Pain in joint, multiple sites; Generalized osteoarthrosis, involving hand Social History Tobacco Use Types Packs/Day Years Used Date Smoking Tobacco: Never Assessed Comments Unknown Sex and Gender Information Value Date Recorded Sex Assigned at Not on file Legal Sex Female 3:59 AM 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
--- OUTSIDE RECORDS SUMMARY | 2025-05-28 17:30 | XMS_ITS | Encounter Summary ---
Author Organization [facility] Address [address] [place] [address] Care Team Providers Care Terrazzo Finisher Name Role Phone Joseluis Mario MD Primary Care Provider Ebony levy Encounter Details Date Type Department Care Team (Late st Contact Info) Description 12/20/2006 Outpatient Historical [facility] [address] 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 Date Signed: 12/20/06 us Johs Leon MD MR ORDERABLES Final Resul t documented in this encounter Visit Diagnoses Not on filedocumented in this encounter Care Teams Terrazzo Finisher Relationship Specialty Start Date End Date Joseluis Mario MD PCP - General Family Practice 07/20/17 documented as of this encounter
--- OUTSIDE RECORDS SUMMARY | 2025-05-28 17:30 | XMS_ITS | Encounter Summary ---
Author Organization [facility] Address [address] [place] [address] Care Team Providers Care Gaming Investigator Name Role Phone Joseluis Mario MD Primary Care Provider Ebony levy Encounter Details Date Type Department Care Team (Latest Contact Info) Description 12/20/[address] [facility] 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
--- OUTSIDE RECORDS SUMMARY | 2025-05-28 17:30 | XMS_ITS | Encounter Summary ---
Author Organization 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) Social History Tobacco Use Types Packs/Day Years Used Date Smoking Tobacco: Never Assessed Comments Unknown Sex and Gender Information Value Date Recorded Sex Assigned at Not on file 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
--- OUTSIDE RECORDS SUMMARY | 2025-05-28 17:30 | XMS_ITS | Data Portability ---
Author Organization [facility] Tika Anaya [facility] Address [address] [facility] [address] [place] [address] Care Team Providers Care Web Database Developer Name Role Phone JEANETTE PASTRANA Primary Care Provider Assessment No assessment recorded. Plan of Treatment Reminders Order Date Submit Date Provider Last Modified By Organization Details Last Modified Time Details Appointments None recorded. Lab CMP, serum or plasma 2024 025 [facility], [address], [facility], [place], [address], 5 13:48:14 CMP, serum or plasma 2023 024 [facility], [address], [facility], [place], [address], 4 17:13:12 CBC 2023 024 [facility], [address] [facility], [facility], [place], [address], 4 16:30:30 Referral None recorded. Procedures None recorded. Surgeries None recorded. Imaging MRI, brain, w/o contrast 2023 024 [facility], [address] [facility], [place], [address], 4 12:01:26 US, duplex, carotid artery 2023 024 [facility], [address] [place], [address], 4 18:02:01 Medication Orders cephalexin 500 mg capsule 2024 025 [facility], [address] [place], [address], 5 05:01:12 gabapentin 100 mg capsule 2024 025 [facility], [address] [place], [address], 5 11:22:17 nifedipine ER 60 mg tablet,exte nded release 2024 025 [facility], [address] [place], [address], 5 08:55:43 carvedilol 3.125 mg tablet 2023 024 [facility], [address] [place], [address], 12:20:30 Patient TargetsNo targets recorded. Patient InstructionsNo instructions recorded. Reason for Referral None Reported. Results Created Date Observation Date Name Description Value Unit Range Abnormal Flag Note LastModifiedBy Organization Detail LastModifiedTime 06/13/2006/13/2024 CBC WBC 6.2 x10 4.0-10 .5 Not Available [facility] [address] [facility] [address], [place], [address], 06/13/2024 16:30:30 06/13/20 24 06/13/2024 CBC RBC 3.67 x10 3.50-5 .50 Not Available [facility] [address] [facility] [address], [place], [address], 06/13/2024 16:30:30 06/13/20 24 06/13/2024 CBC HGB 11.6 g/dL 12.0-1 6.0 low Not Available [facility] [address] [facility], [place], [address], 06/13/2024 16:30:30 06/13/20 24 06/13/2024 CBC HCT 34.2 % 37.0-4 7.0 low Not Available [facility] [address] [facility], [place], [address], 06/13/2024 16:30:30 06/13/20 24 06/13/2024 CBC MCV 93.3 fL 80.0-9 9.9 Not Available [facility] [address] [facility], [place], [address], 06/13/2024 16:30:30 06/13/20 24 06/13/2024 CBC MCH 31.7 pg 27.0-3 2.0 Not Available [facility] [address] [facility], [place], [address], 06/13/2024 16:30:30 06/13/20 24 06/13/2024 CBC MCHC 34.0 g/dL 32.0-3 6.0 Not Available [facility] [address] [facility], [place], [address], 06/13/2024 16:30:30 06/13/20 24 06/13/2024 CBC RDW 13.5 % 11.5-1 4.5 Not Available [facility] [address] [facility] [address], [place], [address], 06/13/2024 16:30:30 06/13/20 24 06/13/2024 CBC plt 215.2 x10 140.0- 451.0 Not Available [facility] [address] [facility], [place], [address], 06/13/2024 16:30:30 06/13/20 24 06/13/2024 CBC lymphocytes % 24.1 % 20.0-5 0.0 Not Available [facility] [address] [facility] [place], [address], 06/13/2024 16:30:30 06/13/20 24 06/13/2024 CBC granulcytes % 61.1 % 30.0-7 0.0 Not Available [facility] [address] [facility] [address], [place], [address], 06/13/2024 16:30:30 06/13/20 24 06/13/2024 CBC monocytes % 11.4 % 2.0-16 .0 Not Available [facility] [address] [facility], [place], [address], 06/13/2024 16:30:30 06/13/20 24 06/13/2024 CBC granulcytes# 3.8 x10 Not Verna ilable [facility] [address] [facility] [address], [place], [address], 06/13/2024 16:30:30 06/13/20 24 06/13/2024 CBC lymphocytes # 1.5 x10 Not Available [facility] [address] [facility] [address], [place], [address], 06/13/2024 16:30:30 06/13/20 24 06/13/2024 CBC monocytes # 0.7 x10 Not Avai lable [facility] [address] [facility] [address], [place], [address], 06/13/2024 16:30:30 06/13/20 24 06/13/2024 CMP (FEMA LE) glucose 104.0 mg/dL 60.0-9 9.0 high Not Available [facility] [address] [facility] [address], [place], [address], 06/13/2024 17:13:12 06/13/20 24 06/13/2024 CMP (FEMA LE) BUN (blood urea nitrogen) 18.0 mg/dL 10.0-2 6.0 Not Available [facility] [address] [facility] [address], [place], [address], 06/13/2024 17:13:12 06/13/20 24 06/13/2024 CMP (FEMA LE) creatinine (serum) 1.0 mg/dL 0.4-1. 5 Not Available [facility] [address] [facility], [place], [address], 06/13/2024 17:13:12 06/13/20 24 06/13/2024 CMP (FEMA LE) BUN/creatini ne ratio 18.00 ratio Not Available [facility] [address] [facility], [place], [address], 06/13/2024 17:13:12 06/13/20 24 06/13/2024 CMP (FEMA LE) eGFR calculated 57.0 Not Available [facility] [address] [facility], [place], [address], 06/13/2024 17:13:12 06/13/20 24 06/13/2024 CMP (FEMA LE) total protein 7.4 g/dL 6.0-8. 5 Not Available [facility] [address] [facility], [place], [address], 06/13/2024 17:13:12 06/13/20 24 06/13/2024 CMP (FEMA LE) total bilirubin 0.4 mg/dL 0.2-1. 3 Not Available [facility] [address] [facility], [place], [address], 06/13/2024 17:13:12 06/13/20 24 06/13/2024 CMP (FEMA LE) albumin 4.1 g/dL 3.5-5. 5 Not Available [facility] [address] [facility], [place], [address], 06/13/2024 17:13:12 06/13/20 24 06/13/2024 CMP (FEMA LE) globulin 3.3 calc Not Available [facility] [address] [facility], [place], [address], 06/13/2024 17:13:12 06/13/20 24 06/13/2024 CMP (FEMA LE) AST (SGOT) 32.0 U/L 0.0-46 .0 Not Available [facility] [address] [facility], [place], [address], 06/13/2024 17:13:12 06/13/20 24 06/13/2024 CMP (FEMA LE) altv (SGPT) 17.0 U/L 13.0-6 9.0 normal Not Available [facility] [address] [facility], [place], [address], 06/13/2024 17:13:12 06/13/20 24 06/13/2024 CMP (FEMA LE) A/G ratio 1.2 ratio Not Available [facility] [address] [facility], [place], [address], 06/13/2024 17:13:12 06/13/20 24 06/13/2024 CMP (FEMA LE) ALP phos 127.0 U/L 30.0-1 40.0 normal Not Available [facility] [address] [facility], [place], [address], 06/13/2024 17:13:12 06/13/20 24 06/13/2024 CMP (FEMA LE) calcium 9.2 mg/dL 8.4-10 .5 Not Available [facility] [address] [facility] [address], [place], [address], 06/13/2024 17:13:12 06/13/20 24 06/13/2024 CMP (FEMA LE) sodium 131.0 mmol/ L 136.0- 145.0 low Not Available [facility] [address] [facility] [address], [place], [address], 06/13/2024 17:13:12 06/13/20 24 06/13/2024 CMP (FEMA LE) potassium 4.0 mmol/ L 3.5-5. 1 Not Available [facility] [address] [facility] [address], [place], [address], 06/13/2024 17:13:12 06/13/20 24 06/13/2024 CMP (FEMA LE) chloride 95.0 mmol/ L 98.0-1 10.0 abnormal Not Available [facility] [address] [facility] [address], [place], [address], 06/13/2024 17:13:12 06/13/20 24 06/13/2024 CMP (FEMA LE) C02 29.0 mmol/ L 22.0-3 1.0 Not Available [facility] [address] [facility] [address], [place], [address], 06/13/2024 17:13:12 06/13/20 24 06/13/2024 CMP (FEMA LE) anion gap 7.0 calc Not Available [facility] [address] [facility] [address], [place], [address], 06/13/2024 17:13:12 06/13/20 24 06/13/2024 CMP (FEMA LE) osmolality 273.2 calc Not Available [facility] [address] [facility] [address], [place], [address], 06/13/2024 17:13:12 06/06/20 25 11/30/2024 CMP (FEMA LE) glucose 102.0 mg/dL 60.0-9 9.0 high Not Available [facility] [address] [facility], [place], [address], 11/30/2024 13:48:14 12/01/19 25 11/30/2024 CMP (FEMA LE) BUN (blood urea nitrogen) 21.0 mg/dL 10.0-2 6.0 Not Available [facility] [address] [facility], [place], [address], 11/30/2024 13:48:14 12/01/19 25 11/30/2024 CMP (FEMA LE) creatinine (serum) 1.1 mg/dL 0.4-1. 5 Not Available [facility] [address] [facility], [place], [address], 11/30/2024 13:48:14 12/01/19 25 11/30/2024 CMP (FEMA LE) BUN/creatini ne ratio 19.09 ratio Not Available [facility] [address] [facility], [place], [address], 11/30/2024 13:48:14 12/01/19 25 11/30/2024 CMP (FEMA LE) eGFR calculated 51.1 Not Available [facility] [address] [facility], [place], [address], 11/30/2024 13:48:14 12/01/19 25 11/30/2024 CMP (FEMA LE) total protein 7.3 g/dL 6.0-8. 5 Not Available [facility] [address] [facility] [address] [address], [place], [address], 11/30/2024 13:48:14 12/01/19 25 11/30/2024 CMP (FEMA LE) total bilirubin 0.6 mg/dL 0.2-1. 3 Not Available [facility] [address] [facility] [address], [place], [address], 11/30/2024 13:48:14 12/01/19 25 11/30/2024 CMP (FEMA LE) albumin 3.8 g/dL 3.5-5. 5 Not Available [facility] [address] [facility], [place], [address], 11/30/2024 13:48:14 12/01/19 25 11/30/2024 CMP (FEMA LE) globulin 3.5 calc Not Available [facility] [address] [facility], [place], [address], 11/30/2024 13:48:14 12/01/19 25 11/30/2024 CMP (FEMA LE) AST (SGOT) 37.0 U/L 0.0-46 .0 Not Available [facility] [address] [facility], [place], [address], 11/30/2024 13:48:14 12/01/19 25 11/30/2024 CMP (FEMA LE) altv (SGPT) 24.0 U/L 13.0-6 9.0 normal Not Available [facility] [address] [address], [place], [address], 11/30/2024 13:48:14 12/01/19 25 11/30/2024 CMP (FEMA LE) A/G ratio 1.1 ratio Not Available [facility] [address] [address], [place], [address], 11/30/2024 13:48:14 12/01/19 25 11/30/2024 CMP (FEMA LE) ALP phos 146.0 U/L 30.0-1 40.0 abnormal Not Available [facility] [address] [address], [place], [address], 11/30/2024 13:48:14 12/01/19 25 11/30/2024 CMP (FEMA LE) calcium 9.7 mg/dL 8.4-10 .5 Not Available [facility] [address] [facility] [address], [place], [address], 11/30/2024 13:48:14 12/01/19 25 11/30/2024 CMP (FEMA LE) sodium 132.0 mmol/ L 136.0- 145.0 low Not Available [facility] [address] [facility], [place], [address], 11/30/2024 13:48:14 12/01/19 25 11/30/2024 CMP (FEMA LE) potassium 4.8 mmol/ L 3.5-5. 1 Not Available [facility] [address] [facility], [place], [address], 11/30/2024 13:48:14 12/01/19 25 11/30/2024 CMP (FEMA LE) chloride 102.0 mmol/ L 98.0-1 10.0 normal Not Available [facility] [address] [facility], [place], [address], 11/30/2024 13:48:14 12/01/19 25 11/30/2024 CMP (FEMA LE) C02 22.0 mmol/ L 22.0-3 1.0 Not Available [facility] [address] [facility], [place], [address], 11/30/2024 13:48:14 12/01/19 25 11/30/2024 CMP (FEMA LE) anion gap 8.0 calc Not Available [facility] [address] [facility], [place], [address], 11/30/2024 13:48:14 12/01/19 25 11/30/2024 CMP (FEMA LE) osmolality 276.1 calc Not Available [facility] [address] [facility], [place], [address], 11/30/2024 13:48:14 06/19/20 24 06/19/2024 MRI, brain , w/o contr ast No observ ation record ed. [facility] [address] [place], [address], 06/25/2024 10:43:53 06/19/20 24 06/19/2024 US, duple x, carot id arter y No observ ation record ed. [facility] [address] [place], [address], 06/25/2024 10:43:53 07/22/19 25 07/22/2024 CT, head + brain , w/o contr ast No observ ation record ed. [facility] [address] [place], [address], 07/23/2024 11:46:22 10/11/19 25 10/04/2024 MAMMO , scree arthur, digit al, bilat eral No observ ation record ed. [facility] [address] [facility] [address], [place], [address], 10/12/2024 09:55:53 Result Notes None recorded. Problems Name Problem SNOMED Code Status Onset Date Resolution Date Notes Provider Name and Address Organization Details Recorded Time Hypertens aida disorder 88347347 Active 2021 HYPERTENS ION; Impressio n: continue current meds. obtain routine labwork today.; Recorded 2 1:28PM by Jeanette Pastrana MD, Office Visit; Promoted; acuity set as *; Not Available [facility] 3 03:11:06 Menopause present 879814611 Active 2022 MENOPAUSA L SYNDROME; Recorded 3 9:45AM by Sandra Paredes Summary; Promoted; acuity set as *; Not Available [facility] 3 03:11:06 Anemia 697271747 Active 2022 AMBREEN francis, [facility] 3 16:56:28 Essential hypertens ion 78492705 Active 2022 AMBREEN francis, [facility] 3 16:56:38 Fibromyal taj 180923832 Active 2022 AMBREEN francis, [facility] 3 16:56:48 Neuropath y 819208759 Active 2022 Jeanette Pastrana MD [address] [place] [address], [address] , [facility] 5 11:20:11 Fatigue 44509541 Active 2022 Jeanette Pastrana MD [address] [place] [address], [address] , [facility] 3 16:52:44 Dependent edema 941108191 Active 2022 Jeanette Pastrana MD [address] [place] [address], [address] , [facility] 3 16:55:17 Xerostomi a 83628678 Active 2022 Jeanette Pastrana MD [address] [place] [address], [address] , [facility] 3 16:55:38 Contusion of left lower leg 63120138506 299427 Active 2022 Jeanette Pastrana MD [address] [place] [address], [address] , [facility] 3 14:34:59 Osteoarth ritis 663372693 Active 2022 Jeanette Pastrana MD [address] [place] [address], [address] , [facility] 3 14:40:14 Carotid bruit 304062194 Active 2022 Jeanette Pastrana MD [address] [place] [address] , [facility] 3 15:07:17 Acute sinusitis 69518804 Active 2022 Jeanette Pastrana MD [address] [place] [address], [address] , [facility] 3 15:07:31 Malaise and fatigue 945872670 Active 2022 Jeanette Pastrana MD [address] [place] [address], [address] , [facility] 3 15:09:06 Upper abdominal pain 36803910 Active 2022 Jeanette Pastrana MD [address] [place] [address], [address] , [facility] 3 15:09:45 Chronic obstructi ve pulmonary disease 27723681 Active 2022 Jeanette Pastrana MD [address] [place] [address], [address] , [facility] 3 11:59:32 Dysphagia 16607394 Active 2023 Jeanette Pastrana MD [address] [place] [address] , [facility] 4 15:29:47 Easy bruising 670981781 Active 2023 Jeanette Pastrana MD [address] [place] [address], [address] , [facility] 4 15:30:58 Chronic hoarsenes s 61897410040 05 Active 2023 Jeanette Pastrana MD [address] [place] [address], [address] , [facility] 4 15:39:14 New daily persisten t headache 40224748545 9105 Active 2023 Jeanette Pastrana MD [address] [place] [address], [address] , [facility] 4 15:46:11 Carotid artery stenosis 87135076 Active 2023 Jeanette Pastrana MD [address] [place], [place] [address] , [facility] 4 15:47:02 Dizziness 375743252 Active 2023 Jeanette Pastrana MD [address] [place], [place] [address] , [facility] 4 16:00:20 Loss of appetite 50994761 Active 2024 Jeanette Pastrana MD [address] [place] [address], [address] , [facility] 5 18:54:30 Moderate recurrent major depressio n 07083169 Active 2024 Jeanette Pastrana MD [address] [place] [address] , [facility] 5 13:15:44 Periphera l edema 507473868 Active 2024 Jeanette Pastrana MD [address] [place] [address] , [facility] 5 11:34:44 Chronic kidney disease stage 3A 610099676 Active 2024 Jeanette Pastrana MD [address] [place] [address], [address] , [facility] 5 11:36:01 Celluliti s of left lower limb 13268079061 152997 Active 2024 Jeanette Pastrana MD [address] [place] [address], [address] , [facility] 5 09:45:28 Problem Notes None recorded. Procedures Surgical History Date Name Laterality Status Provider Name and Address Organization Details Recorded Time hysterectomy completed [facility] [place] 09/21/2022 17:00:28 cholecystectomy completed [facility] [place] 09/27/2022 16:18:45 Imaging Results None recorded. Procedure Notes None recorded. Medical Equipment None Reported. Allergies Allergen ID Allergen Name Allergen Category Reaction Reaction Severity Criticality Documentation Date Start Date Code Code System Note Provider Name and Address Organization Details Recorded Time 08513 amlodipin e / olmesarta n medicatio n Not available Not available Not available 01/22/2023 01877 15 RxNorm Comme nt: Recor ded 05/11 11:28 AM by Adriana Clement Offic e Visit ; Blu aldrich; Rachel goetz ce: *; Reaso n: Drug aller gy; ; [facility] 4 15:24:03 05348 penicilli n G benzathin e medicatio n Not available Not available Not available 01/22/2023 7982 RxNorm Comme nt: Recor ded 05/11 11:27 AM by Adriana Clement Offic e Visit ; Promo valdemar; Signi sofy ce: *; Reaso n: Drug aller gy; ; Not Available [facility] 3 02:27:21 27818 naproxen sodium medicatio n Not available Not available Not available 01/22/2023 67487 2 RxNorm Comme nt: Recor ded 05/11 11:28 AM by Jaimee Quinonez sa e Visit ; Blu aldrich; Rachel goetz ce: *; Reaso n: Drug aller gy; ; Not Available [facility] 3 02:27:21 609 Cipro medicatio n Not available Not available Not available 09/21/202281673 3 RxNorm [facility] 4 15:24:09 610 Product containin g penicilli n (product) medicatio n Not available Not available Not available 09/21/2022 55775 8001 SNOMED AMBREEN RACQUELNicola [facility] 3 16:55:01 611 Ultram medicatio n Not available Not available Not available 09/21/2022 25635 6 RxNorm AM[facility]EN [facility]ACQUELNicola [facility] 3 16:55:09 612 Bactrim medicatio n Not available Not available Not available 09/21/2022 11587 9 RxNorm [facility] 4 15:24:07 613 meloxicam medicatio n Not available Not available Not available 09/21/2022 79212 RxNorm AMBREEN VARELANicola [facility] 3 16:55:45 615 Naprosyn medicatio n Not available Not available Not available 09/21/2022 2 RxNorm AMBREEN RACQUEL francis [facility] 3 16:56:01 616 amlodipin e medicatio n Not available Not available Not available 09/21/2022 93203 RxNorm Karis Nav francis [facility] 4 15:24:01 16659 Macrobid medicatio n Not available Not available low 11/22/2023 18895 1 RxNorm AMBREENSA CLEMENT tito [facility] 4 15:22:05 20318 Breo medicatio n Not available Not available Not available 10/30/2024 01391 87 RxNorm state s that it cause s her legs to swell . GIOVANNI CASTRO tito [facility] 5 10:59:50 Medications Name Sig Start Date Stop Date Status Note LastModified by Organization Details LastModified Time celecoxib 200 mg capsule Take 1 capsule every day by oral route for 90 days. 11/21 completed Not Available Not Available Not Available cyclobenz aprine 10 mg tablet TAKE 1 TABLET BY MOUTH ONCE DAILY AT BEDTIME 2024 active Not Available Not Available Not Avai lable ketoconaz ole 2 % shampoo APPLY ON THE SKIN DAILY FOR 1 WEEK, THEN USE 2-3 TIMES WEEKLY NEEDED. active Not Available Not Available No t Available clindamyc in HCl 300 mg capsule TAKE 2 CAPSULES BY MOUTH THREE TIMES DAILY FOR 7 DAYS active Not Available Not Available No t Available Iron (ferrous sulfate) 325 mg (65 mg iron) tablet Take 1 tablet every day by oral route. active Not Available Not Available No t Available azithromy safia 250 mg tablet TAKE 1 TABLET BY MOUTH ONCE DAILY FOR 4 DAYS 09/27 completed Not Available Not Available Not Available minocycli ne 100 mg capsule TAKE 1 CAPSULE BY MOUTH TWICE DAILY FOR 5 DAYS 12/25 completed Not Available Not Available Not Available lisinopri l 20 mg tablet TAKE 1 TABLET BY MOUTH ONCE DAILY 06/13 completed Not Available Not Available Not Available prednison e 20 mg tablet TAKE 2 TABLETS BY MOUTH ONCE DAILY IN THE MORNING WITH FOOD 04/20 completed Not Available Not Available Not Available nifedipin e ER 30 mg tablet,ex tended release TAKE 1 TABLET BY MOUTH ONCE DAILY 11/30 completed Not Available Not Available Not Available carvedilo l 3.125 mg tablet Take 1 tablet twice a day by oral route. 06/25 completed Not Available Not Available Not Available estradiol 1 mg tablet TAKE 1 TABLET BY MOUTH ONCE DAILY 06/13 completed Not Available Not Available Not Available imiquimod 5 % topical cream packet APPLY PINHEAD SIZED AMOUNT FOR 5 NIGHTS IN A ROW THEN DISCONTI NUE. COVER WITH A BANDAID AFTER APPLYING . active Not Available Not Available No t Available doxycycli ne monohydra te 100 mg capsule TAKE 1 CAPSULE BY MOUTH TWICE DAILY FOR 10 DAYS 11/21 completed Not Available Not Available Not Available cephalexi n 500 mg capsule Take 1 capsule every 6 hours by oral route for 7 days. 01/08 completed Not Available Not Available Not Available erythromy safia 5 mg/gram (0.5 %) eye ointment APPLY 0.25 INCH OF OINTMENT TO LEFT EYE EVERY EVENING 06/13 completed Not Available Not Available Not Available neomycin- polymyxin -dexameth 3.5 mg/mL-10, 000 unit/mL-0 .1% eye drops INSTILL 1 DROP INTO LEFT EYE ONCE DAILY AT NIGHT active Not Available Not Available No t Available Advair Diskus 250 mcg-50 mcg/dose powder for inhalatio n Inhale 1 puff twice a day by inhalati on route. 06/13 completed Not Available Not Available Not Available hydralazi ne 50 mg tablet TAKE 1 TABLET BY MOUTH THREE TIMES DAILY active Not Available Not Available No t Available gabapenti n 100 mg capsule TAKE 1 CAPSULE BY MOUTH THREE TIMES DAILY active Not Available Not Available No t Available dexametha sone sodium phosphate 4 mg/mL injection solution Inject 1 mL by intramus cular route. 09/26 completed Not Available Not Available Not Available nifedipin e ER 60 mg tablet,ex tended release TAKE 1 TABLET BY MOUTH ONCE DAILY 12/03 completed Not Available Not Available Not Available clobetaso l 0.05 % scalp solution APPLY 1 ML TO THE SCALP DIRECTED DAILY FOR 1 WEEK THEN 2 TIMES PER WEEK NEEDED active Not Available Not Available No t Available lisinopri l 40 mg tablet Take 1 tablet by mouth once daily 2024 active Not Available Not Available Not Avai lable doxycycli ne hyclate 100 mg tablet TAKE 1 TABLET BY MOUTH ONCE DAILY 03/21 completed Not Available Not Available Not Available Ventolin HFA 90 mcg/actua tion aerosol inhaler INHALE 2 PUFFS BY MOUTH EVERY 4 HOURS NEEDED 06/13 completed Not Available Not Available Not Available Adult Low Dose Aspirin 81 mg tablet,de layed release Take 1 tablet every day by oral route. 06/13 completed Not Available Not Available Not Available aspirin daily 04/20 completed 0; Recorded 05/26/20 22 1:25PM by Jeanette Pastrana MD, Office Visit; Not Available Not Available Not Available estradiol 1mg tablet take daily 04/20 completed Not Available Not Available Not Available albuterol sulfate every 4 hours as needed 04/20 completed Recorded 05/26/20 22 1:25PM by Jeanette Pastrana MD, Office Visit; Refill Quantity : 1; Capsule; Not Available Not Available Not Available lisinopri l daily 04/20 completed Recorded 06/16/20 22 11:46AM by Jeanette Pastrana MD, Office Visit; Not Available Not Available Not Available multivita min 1 tab daily active Not Available Not Available No t Available Advair Diskus two times daily 04/20 completed Recorded 06/16/20 22 11:47AM by Jeanette aPstrana MD, Office Visit; Not Available Not Available Not Available Multivita min w/Mineral s, Iron daily 11/21 completed 0; Recorded 05/26/20 22 1:25PM by Jeanette Pastrana MD, Office Visit; Not Available Not Available Not Available Advair HFA 115 mcg-21 mcg/actua tion aerosol inhaler INHALE 1 PUFF BY MOUTH TWICE DAILY 10/30 completed Not Available Not Available Not Available hydrochlo rothiazid e 12.5 mg tablet TAKE 1 TABLET BY MOUTH ONCE DAILY active Not Available Not Available No t Available levocetir izine 5 mg tablet TAKE 1 TABLET BY MOUTH ONCE DAILY 03/21 completed Not Available Not Available Not Available Breo Ellipta 100 mcg-25 mcg/dose powder for inhalatio n INHALE 1 PUFF BY MOUTH ONCE DAILY active Not Available Not Available No t Available albuterol sulfate 90 mcg/actua tion breath activated powder inhaler Inhale 2 puffs every 4 hours by inhalati on route. 07/25 completed Not Available Not Available Not Available Vitals Date Recorded Body height Body mass index (BMI) Body weight Oxygen saturation Heart rate Respiratory rate Body temperature Systolic And Diastolic Provider Name and Address Organization Details Last Updated DateTime 5 154.94 cm 23.2 kg/m2 24603.8 6 g 96 % 109 /min 18 /min 97.3 [degF] 160/64 mm[Hg] [facility] 5 15:12:21 Date Recorded Body height Body mass index (BMI) Body weight Body temperature Oxygen saturation Heart rate Systolic And Diastolic Provider Name and Address Organization Details Last Updated DateTime 5 154.94 cm 23.5 kg/m2 99570.2 5 g 97.5 [degF] 96 % 106 /min 140/82 mm[Hg] [facility] 5 11:05:45 Date Recorded Body height Body mass index (BMI) Body weight Body temperature Oxygen saturation Heart rate Systolic And Diastolic Provider Name and Address Organization Details Last Updated DateTime 5 154.94 cm 23.3 kg/m2 35877.6 6 g 97.9 [degF] 99 % 91 /min 130/60 mm[Hg] [facility] 5 11:14:44 Date Recorded Body height Body mass index (BMI) Body weight Body temperature Oxygen saturation Heart rate Systolic And Diastolic Provider Name and Address Organization Details Last Updated DateTime 5 154.94 cm 23.2 kg/m2 04785.8 6 g 97.6 [degF] 98 % 93 /min 122/60 mm[Hg] [facility] 5 09:27:26 Date Recorded Body height Body mass index (BMI) Body weight Oxygen saturation Heart rate Respiratory rate Body temperature Systolic And Diastolic Systolic And Diastolic Provider Name and Address Organization Details Last Updated DateTime 4 154.94 cm 23.1 kg/m2 01591.9 9 g 98 % 106 /min 16 /min 97.6 [degF] 160/84 mm[Hg] 166/80 mm[Hg] Karis Chopra [facility] 15:23:02 Social History Question Answer Notes LastModified by Organizat ion Details LastModified Time Tobacco Smoking Status Former Smoker Cynthia francis [facility] 12/25/2024 09:34:37 Do You Wear A Helmet When Biking? No Information not available 09/21/2022 Are You Blind Or Do You Have Difficulty Seeing? No Information not available 09/21/2022 What Is Your Level Of Caffeine Consumption? Occasional Information not available 09/21/2022 Are You Deaf Or Do You Have Serious Difficulty Hearing? No Information not available 09/21/2022 What Type Of Diet Are You Following? REGULAR Information not available 10/30/2024 What Was The Date Of Your Most Recent Tobacco Screening? 12/25/2024 [email or web address] Information not available 12/25/2024 What Is Your Relationship Status? Information not available 10/30/2024 Do You Use Your Seat Belt Or Car Seat Routinely? Yes Information not available 09/21/2022 Have You Recently Traveled Abroad? No Information not available 09/21/2022 Do You Have Difficulty Walking Or Climbing Stairs? No Information not available 09/21/2022 Are You Currently In School? No Information not available 09/21/2022 Do You Have Any Dietary Restrictions? No Information not available 10/30/2024 Sex: Unknown Functional Status Question Answer Note LastModified by Organizat ion Details LastModified Time Do you use any illicit or recreational drugs? No Information not available 09/21/2022 What is your level of alcohol consumption? None Information not available 09/21/2022 Are you currently employed? No Information not available 09/21/2022 Do you have transportation difficulties? No Information not available 09/21/2022 Are you able to walk independently without assistance or assistive devices? YESASSIST Information not available 09/21/2022 Do you have difficulty doing errands alone? No Information not available 09/21/2022 Are you able to care for yourself independently? Yes Information not available 09/21/2022 Do you have difficulty dressing, bathing, grooming, or toileting? No Information not available 09/21/2022 Mental Status Question Answer Note LastModified by Organization D etails LastModified Time Do you have difficulty concentrating, remembering or making decisions? No Information no t available 09/21/2022 Family History Relationship Description Onset Age of this Age Resolved Age Notes LastModified by Organization Details LastModified Time Sister Malignant neoplasm of breast tgregg Not available 2022 16:57:32 Sister Diabetes mellitus tgregg Not available 2022 16:58:13 Mother Essential hypertension tgregg Not available 16:57:52 Notes:family history of diff use glioma Medical History No medical history recorded. Gynecological HistoryNo gynecological history recorded. Obstetrics History GPAL:G 0 P 0 0 0 0 Immunizations Vaccine Type Date Status Note Provider Nam e and Address Organization Details Recorded Time Td (adult), 2 Lf tetanus toxoid, preservative free, adsorbed 3 completed Not Available [facility] 12/25/2024 09:18:39 Influenza, high-dose, trivalent, PF 6 completed Not Available [facility] 12/25/2024 09:18:39 zoster recombinant 8 completed Not Available [facility] 12/25/2024 09:18:39 Influenza, split virus, quadrivalent, PF 9 completed Not Available [facility] 12/25/2024 09:18:39 Influenza, split virus, quadrivalent, PF 0 completed Not Available [facility] 12/25/2024 09:18:39 COVID-19, mRNA, LNP-S, PF, 100 mcg/0.5mL dose or 50 mcg/0.25mL dose 1 completed Not Available [facility] 12/25/2024 09:18:39 COVID-19, mRNA, LNP-S, PF, 100 mcg/0.5mL dose or 50 mcg/0.25mL dose 1 completed Not Available [facility] 12/25/2024 09:18:39 Influenza, split virus, quadrivalent, PF 1 completed Not Available [facility] 12/25/2024 09:18:39 COVID-19, mRNA, LNP-S, PF, 100 mcg/0.5mL dose or 50 mcg/0.25mL dose 1 completed Not Available [facility] 12/25/2024 09:18:39 Tdap 2 completed Not Available [facility] 12/25/2024 09:18:39 Influenza, split virus, quadrivalent, PF 2 completed Not Available [facility] 12/25/2024 09:18:39 Influenza, high-dose, quadrivalent, PF 3 completed Not Available [facility] 12/25/2024 09:18:39 Influenza, high-dose, trivalent, PF 4 completed Not Available [facility] 12/25/2024 09:18:39 Past Encounters Encounter ID Performer Location Encounter Start Date Encounter Closed Date Diagnosis/Indication Diagnosis SNOMED-CT Code Diagnosis ICD10 Code Diagnosis IMO Codes Diagnosis Note [id number] Jeanette Pastrana MD [facility] ([facility]) [address] [place] [address] [id number] 09/27/2022 16:30:00 09/28/2022 12:07:03 Fatigue 30867534 R53.83 we will check labs today. May consider home sleep study if labs are normal. Dependent edema 06588822 4 R60.0 discussed feet elevations and compressio n stockings. Xerostomia 31744371 R68. 2 continue with hard candies, gum and add biotene as needed. [id number] Jeanette Pastrana MD [facility] ([facility]) [address] [place] [address] [id number] 11/01/2022 14:04:09 11/01/2022 18:16:51 Contusion of left lower leg [id number] 5616646 S80.12XD check for DVT. Discussed home exercises, leg elevation and ice. Consider PT if not improving. Osteoarthritis 733886019 M19.90 Patient states her pain was better controlled on celebrex. She denies any issues with celebrex when on it previously . [id number] Jeanette Pastrana MD [facility] ([facility]) [address] [place] [address] [id number] 11/03/2022 15:47:11 11/03/2022 17:01:53 [id number] Jeanette Pastrana MD [facility] ([facility]) [address] [place] [address] [id number] 5 04/20/2023 14:38:36 04/22/2023 11:21:38 Carotid bruit 814935302 R09.89 Given the abnormal exam finding we will evaluate this further with ultrasound . Acute sinusitis 07575562 J01.90 This is likely why the patient does not feel well. We will start antibiotic s and provide steroid injection today. Malaise and fatigue 2717 35774 R53.81 We will check labs today. Upper abdominal pain 831 67848 R10.10 Patient does have significan t discomfort in her epigastric area. Commend the patient undergo ED for reevaluati on of this area. Chronic ob structive pulmonary disease 72341057 J44.9 Essential hypertension 41619139 I10 Osteoarthritis 742193016 M19.90 [id number] Jeanette Pastrana MD [facility] ([facility]) [address] [place] [address] [id number] 11/22/2023 15:11:27 11/22/2023 15:51:07 Dysphagia 87810295 R13.10 Will proceed with modified barium swallow given that the difficulty with swallowing solids. Unintentio nal weight loss 967977779 R63.4 Will check labs today. Fatigue 65114324 R53.83 Check B12 level and blood counts given her history of anemia and vitamin B12 deficiency . Easy bruising 642436373 R58 Will check PT/INR today. Patient was encouraged to stop taking aspirin daily. Chronic hoarseness 83452 73326 105 R49.0 Considerin g her dysphagia and hoarseness , will send referral to ENT [id number] Jeanette Pastrana MD [facility] ([facility]) [address] [place] [address] [id number] 03/21/2024 11:40:05 03/21/2024 13:08:09 Essential hypertension 33343583 I10 Increase her lisinopril to 40 mg. Patient was instructed to check her blood pressure daily for 1 week and provide a log of those readings. Fibromyalgia 448367773 M 79.7 Stable Chronic ob structive pulmonary disease 11135072 J44.9 Breathing is doing fairly well on current inhalers. Dependent edema 34146490 4 R60.0 Likely worsened due to elevated blood pressure. Discussed feet elevations and compressio n stockings. [id number] Jeanette Pastrana MD [facility] ([facility]) [address] [place] [address] [id number] 5 06/13/2024 14:57:09 06/13/2024 16:33:53 New daily persistent headache 7666925404 11649 G44.52 Given the new daily persistent headache and family history of brain cancer, it would not be unreasonab le to proceed with imaging. Carotid ar cristine stenosis 83771936 I65.29 Recommend repeating ultrasound given the significan t stenosis and increase dizziness. Essential hypertension 13306153 I10 Will add carvedilol and see if this will help with your blood pressure. Dizziness 460801994 R42 Check labs today. Will evaluate carotid stenosis and obtain MRI as above. [id number] Jeanette Pastrana MD [facility] ([facility]) [address] [place] [address] [id number] 5 07/25/2024 15:00:10 07/25/2024 16:14:52 Essential hypertension 16874824 I10 Patient's blood pressure continues to be elevated systolical ly. The patient has tolerated the nifedipine at 30 mg so we will increase the dose. Fibromyalgia 739772628 M 79.7 Patient reports that she has been having some allover pain. Patient is unsure of what to do for this. The patient has had treatment for fibromyalg ia but did not tolerate the medication well. Dependent edema 03911137 4 R60.0 Continues to have edema that is likely worsened by her blood pressure. It is possible the nifedipine can be contributi ng as well. Encouraged feet elevation and to try compressio n stockings. Loss of appetite 8515874 6 R63.0 That the patient's episode could be related to dropping blood sugars. Urged the patient to Ayde aguirre about eating. Discussed medication s to help increase appetite but the patient declines. Salbador adding nutritiona l supplement s to help increase nutrition. [id number] Jeanette Pastrana MD [facility] ([facility]) [address] [place] [address] [id number] 10/30/2024 10:52:12 10/30/2024 13:07:51 Dependent edema 454804257 R60.0 Continue current interventi ons. Neuropathy 256694065 G62 .9 62021 Will start gabapentin to see if this will help with her neuropathi c pain. Essential hypertension 49664303 I10 Pressures doing better on current medication s. Chronic ob structive pulmonary disease 58844258 J44.9 Breathing is doing fairly well on Advair. She will be a good candidate 340 be able to get this program started for her to help with inhaler cost. [id number] Jeanette Pastrana MD [facility] ([facility]) [address] [place] [address] [id number] 5 11/30/2024 10:57:22 11/30/2024 11:57:13 Peripheral edema 863050651 R60.0 36688 Concerned that the peripheral edema is secondary to the nifedipine . May need to consider other blood pressure medication s. Essential hypertension 37417488 I10 Blood pressure is currently controlled on current medication s. However, if blood pressure medication is causing the edema then the patient would like to change. Chronic ki dney disease stage 3A 383202025 N18.31 [id number] Will check labs today. If labs are normal or stable then we will likely change blood pressure medication s as above. [id number] Jeanette Pastrana MD [facility] ([facility]) [address] [place] [address] [id number] 5 12/25/2024 09:15:44 12/25/2024 10:23:48 Cellulitis of left lower limb 8038532930 8157841 L03.246 2258978 Concerned about infection of the left leg. Recommend starting antibiotic s. Dependent edema 93851687 4 R60.0 The patient continues to struggle with her edema. Has compressio n stockings but states that she cannot get them on because are too tight. Recommend moderate compressio n with appropriat e size compressio n stockings. Prescripti on provided today for the patient to take it to [facility] to obtain appropriat e compressio n stockings. Health Concerns Section Related Observation LastModified by Organization Detai ls LastModified Time None Recorded Concern Status LastModified by Organization Details LastModified Time None Recorded Advance Directives Directive None Recorded Payers Insurance Date Sequence Insurance Name Policy Number Policy Vivas Covered Member ID Vivas Member ID Guarantor Name 12/25/2024 [employer] [place] - [id number] (MEDICARE) Gladis Frausto [id number] Gladis Frausto 12/31/2024 2 [email or web address] - PLAN F (MEDICARE SUPPLEMENT) Gladis Frausto [id number] Gladis Frausto 03/21/2024 2 [employer] [place] Gladis Frausto [id number] Gladis Frausto 12/25/2024 1 [place] Gladis Frausto [id number] Gladis Frausto Notes Date Note Type Note Provider Name and Address Organization Details Recorded Time 06/13/2024 text/html Annual WellnessReported by Patient This is a 79-year-old female who comes in today for routine follow-up. The patient has been monitoring her blood pressure at home and has noticed that her systolic blood pressure is persistently high. The patient does have a new daily persistent headache. She also has associated dizziness with this. Patient reports there is a family history of hereditary brain cancer and the patient is concerned. Jeanette Pastrana MD [address] [place] [address], [phone], [facility] 06/17/2024 12:05:53 07/25/2024 text/html This is a 79-year-old female that comes in today for ER follow-up. The patient had an episode at home where she felt very weak and shaky. The patient states that she had lost control of her limbs and was unable to ambulate. The patient had to go to the ER via ambulance. I did stroke evaluation and it was deemed not to be stroke related. The patient had lab work that was essentially normal. Patient states that her blood pressure was significantly elevated on the top, however the ER records had documented normal blood pressure. Patient continues to have poor appetite and is not eating well. Patient is concerned about increasing lower extremity edema that is painful. Patient denies any significant shortness of breath Jeanette Pastrana MD [address] [place] [address], [phone], [facility] 07/26/2024 18:55:37 10/30/2024 text/html Is a 79-year-old female that comes in today for routine follow-up. She continues to struggle some with edema but overall is manageable. The patient states that she has been having increasing issues with burning pain in legs and feet. States her blood pressure is doing okay on current medications. The patient has been struggling with her COPD management and states that Breo has not been as effective as Advair. The patient states that neither inhaler is affordable due to her insurance. The patient is currently using Advair about every other day and this seems to be working okay for her. Jeanette Pastrana MD [address] [place] [address], [phone], [facility] 11/01/2024 12:28:05 11/30/2024 text/html EdemaReported by PatientHPIFor quality, patient reportslegs do not swell equallyandpainful. For context, patient reportsprior history of edema. For associated symptoms, patient reportsshortness of breath (pt states that she stopped her inhaler d/t $400/month)but reportsno cough,no chest pain, andno palpitations. For location, patient reportsble. For duration, patient reportsconstant. For modifying factors, patient reportsnothing gives relief.ROS as noted in the HPI This 79-year-old female comes in today to discuss peripheral edema. Patient states that she has been having progressive peripheral edema that does not go down at night. Patient states that it is painful. Patient denies any significant shortness of breath. The patient is concerned about her kidneys. Jeanette Pastrana MD [address] [place] [address], [phone], [facility] 12/02/2024 10:05:09 12/25/2024 text/html This is a 79 year old female here today to discuss lower leg pain, swelling and red with warmth. Concerned about cellulitis. Patient states that it is primarily her left leg, however she reports some issues with her right leg Jeanette Pastrana MD [address] [place] [address], [phone], [facility], Tika 12/27/2024 13:10:50 OBGyn Episode No OBEpisode recorded.
--- NOTE | 2025-05-28 17:33 | W.ED.WEAKNES ---
HPI - Weakness General: Chief complaint: Weakness Stated complaint: stroke symptoms Time Seen by Provider: 05/28/25 17:13 History of Present Illness: 80-year-old female who presents to the emergency room complaints of weakness sluggishness particularly on her right side for the last week she has a facial droop she has numbness and tingling on the right side family noticed early the last week she seemed to be having trouble and it became progressively more obvious since then. Has any chest or abdominal pain. Family reports that a year ago they believe she has a stroke she was seen at another hospital she was not admitted they felt she had had a stroke at that time also related that her blood pressure was markedly elevated. No recent fever sweats chills flulike symptoms no cough or shortness of breath Associated symptoms: Denies chest pain, chills, dysuria or fever(s) Related Data Home Medications ?Medication ?Instructions ?Recorded ?Confirmed ferrous fumarate 325 mg (106 mg 65 mg PO DAILY 04/21/20 05/29/25 iron) tablet gabapentin 100 mg capsule 100 mg PO TID 01/14/25 05/29/25 ketoconazole 2 % shampoo 1 applic topical .3 times a week 01/14/25 05/29/25 PRN for the symptoms lisinopril 40 mg tablet 40 mg PO QDAY 01/14/25 05/29/25 mecobalamin (vitamin B12) 1,000 1,000 mcg sublingual DAILY 04/22/25 05/29/25 mcg disintegrating tablet,sublingual aspirin 81 mg tablet 81 mg PO DAILY 05/29/25 05/29/25 clobetasol 0.05 % topical cream 1 applic topical DAILY PRN Itching 05/29/25 05/29/25 cyclobenzaprine 10 mg tablet 10 mg PO BEDTIME 05/29/25 05/29/25 fluticasone 250 mcg-salmeterol 50 1 inh inhalation DAILY 05/29/25 05/29/25 mcg/dose blistr powdr for inhalation (Wixela Inhub) Previous Rx's ?Medication ?Instructions ?Recorded hydralazine 50 mg tablet 50 mg PO TID #240 tabs 02/07/25 atorvastatin 40 mg tablet 40 mg PO BEDTIME #30 tabs 05/30/25 clopidogrel 75 mg tablet (Plavix) 75 mg PO DAILY #60 tabs 05/30/25 furosemide 40 mg tablet See Rx Instructions .Route 06/03/25 .COMPLEX #30 tabs Allergies Allergy/AdvReac Type Severity Reaction Status Date / Time nitrofurantoin (From Allergy Intermediate ADR-Vomitin Verified 05/28/25 16:42 Macrobid) g amlodipine Allergy ADR-Vomitin Verified 05/28/25 16:42 g ciprofloxacin (From Cipro) Allergy ADR-Vomitin Verified 05/28/25 16:42 g meloxicam Allergy ADR-Vomitin Verified 05/28/25 16:42 g naproxen Allergy ADR-Vomitin Verified 05/28/25 16:42 g Penicillins Allergy ALGY-Difficulty Verified 05/28/25 16:42 Breathing sulfamethoxazole (From Allergy ADR-Vomitin Verified 05/28/25 16:42 Bactrim) g tramadol (From Ultram) Allergy ADR-Vomitin Verified 05/28/25 16:42 g trimethoprim (From Bactrim) Allergy ADR-Vomitin Verified 05/28/25 16:42 g Review of Systems Const: Denies: fever(s) or chills Card: Denies: chest pain Resp: Denies: dyspnea GI: Denies: abdominal pain : Denies: dysuria, urinary frequency or urinary urgency Musc: Denies: neck pain or back pain Skin/Breast: Denies: rash PFSH ED PFSH: Medical History Peripheral neuropathy History of blood transfusion Basal cell carcinoma of skin Hypertension, unspecified type Anemia Asthma Surgical History History of cholecystectomy open History of bladder suspension procedure History of Marty fundoplication History of bilateral cataract extraction History of colonoscopy History of lumbar discectomy History of total hysterectomy with bilateral salpingo-oophorectomy (BSO) benign path per report Family History Father Lung cancer Mother Anemia Peripheral vascular disease Aneurysm Social History Smoking and tobacco/nicotine status: never used tobacco/nicotine Quit status (tobacco/nicotine): has quit using Year quit tobacco: 1985 Alcohol intake: never Substance/Drug Use: never Household members: spouse Marital status: Marital status details: 55 years as of 2024 Number of children: 2 Current occupational status: retired 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: [employer] Special 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 needs: No Agree to transfusion: Yes Physical Exam Const: GENERAL APPEARANCE: cooperative and comfortable ORIENTATION/CONSCIOUSNESS: Yes awake HENMT: COMMON NORMALS: normocephalic, atraumatic and hearing grossly normal bilaterally HEAD & SCALP: normocephalic and atraumatic Resp: COMMON NORMALS: normal respiratory effort, No retractions, No use of accessory muscles and clear to auscultation bilaterally AUSCULTATION: clear to auscultation bilaterally Cardio: COMMON NORMALS: regular rate, regular rhythm and No murmurs present (Cardio) RATE: regular rate RHYTHM: regular rhythm GI: COMMON NORMALS: Soft to palpation and No hepatosplenomegaly present AUSCULTATION: Yes normoactive bowel sounds PALPATION: Yes Soft to palpation, No Tenderness to palpation present (GI), No Guarding due to palpation present (GI) and Yes No hepatosplenomegaly present Extremity: COMMON NORMALS: normal to inspection, capillary refill normal, no clubbing, cyanosis or edema, no calf tenderness and no pedal edema Skin: COMMON NORMALS: no rashes or lesions noted GENERAL SKIN EXAM: no rashes or lesions noted Course Vital Signs: Vital signs: Vital Signs Temperature 97.4 F L 05/30/25 11:23 Pulse Rate 78 05/30/25 12:02 Respiratory Rate 18 05/30/25 11:23 Blood Pressure 150/72 05/30/25 12:02 Pulse Oximetry 98 05/30/25 12:02 Oxygen Delivery Me thod Room Air 05/30/25 11:23 MDM - Weakness Medical Decision Making Medical decision making Social determinants: None I reviewed the patient's medical record. I reviewed the patient's current home meds. Alternate historians: Family members Differential diagnosis: CVA generalized weakness and decline Lab Review: No leukocytosis moderate anemia with a hemoglobin of 12 at 10.2. mild acute kidney injury with creatinine of 1.6. Imaging: CT head no acute findings Assessment of risk Level of risk: Moderate/high Hospitalization considerations: Hospitalization for subacute CVA Reexamination: Unchanged Assessment and plan: NIH done 1 patient initially presented. NIH score of 5. Her last known well was approximately 1 week ago. Based on the history given by the family and the findings on exam I do believe patient had an acute CVA however she is well past any window of opportunity for treatment. Will admit for subacute CVA as well as mild acute kidney injury. Have discussed with Dr. Jeffery. Did not get CTA of the head or neck as patient already has mild acute kidney injury and no significant decision point would be made based on findings at this time. Discussed with the family orders written and discussed with hospitalist. Lab Data 05/28/25 18:12 05/29/25 05:[address] 05/28/25 17:15 IMPRESSION: Age-indeterminate region of decreased attenuation in the left basal ganglia. Correlate clinically for symptoms of acute or subacute stroke. No priors to compare. Otherwise evaluation with CTA or MRI is recommended. ADDENDUM: 05/28/25 1800 THIS REPORT CONTAINS FINDINGS THAT MAY BE CRITICAL TO PATIENT CARE. The findings were verbally communicated via telephone conference with BLAISE Marcos 557 pm HUMAN RESOURCE MANAGEMENT INSTRUCTOR on 05/28/2025. The findings were acknowledged and understood. Head MRI 05/29/25 08:00 IMPRESSION: Subacute nonhemorrhagic infarct of the left lentiform nucleus. Head/Neck CTA 05/29/25 20:42 IMPRESSION: No large vessel stenosis or occlusion. IMPRESSION: 1. No large vessel occlusions. 2. Moderate stenoses of the origins of the right and left internal carotid arteries. 3. Variably [id number] multifocal stenoses in the cavernous internal carotid arteries bilaterally. REFERENCES: NASCET CRITERIA. The degree of stenosis in the cervical segment of the internal carotid artery is based on NASCET criteria. Normal is no stenosis. Mild is less than 50% stenosis. Moderate is 50-69% stenosis. Severe is 70% to 99% stenosis. Total occlusion is no detectable patent lumen. Laboratory Results WBC 6.84 10^3/uL (3.29-11.43) 05/28/25 18:12 RBC 3.49 10^6/uL (3.85-5.65) L 05/28/25 18:12 Hgb 10.20 g/dL (11.27-16.99) L 05/28/25 18:12 Hct 31.2 % (36-47) L 05/28/25 18:12 MCV 89.4 fl (85-98) 05/28/25 18:12 MCH 29.2 pg (27-33) 05/28/25 18:12 MCHC 32.7 g/dL (30-55) 05/28/25 18:12 RDW 13.6 % (12.1-15.1) 05/28/25 18:12 Plt Count 187 10^3/cmm (157-399) 05/28/25 18:12 MPV 9.3 fL (7.4-10.4) 05/28/25 18:12 Neut % (Auto) 59.9 % 05/28/25 18:12 Lymph % (Auto) 22.4 % 05/28/25 18:12 [place] % (Auto) 14.2 % 05/28/25 18:12 Eos % (Auto) 2.5 % 05/28/25 18:12 Baso % (Auto) 0.7 % 05/28/25 18:12 Neut # (Auto) 4.10 10^3/uL (1.8-7.7) 05/28/25 18:12 Lymph # (Auto) 1.5 10^3/uL (0.8-4.8) 05/28/25 18:12 [place] # (Auto) 1.0 10^3/uL (0.2-0.9) H 05/28/25 18:12 Eos # (Auto) 0.2 10^3/uL (0.0-0.8) 05/28/25 18:12 Baso # (Auto) 0.1 10^3/uL (0.0-0.1) 05/28/25 18:12 Nucleated RBC % (auto) 0 % 05/28/25 18:12 Nucleated RBCs # 0.0 /100WBC 05/28/25 18:12 Sodium 136 mmol/L (136-145) 05/28/25 18:12 Potassium 4.3 mmol/L (3.5-5.1) 05/28/25 18:12 Chloride 101 mmol/L (98-107) 05/28/25 18:12 Carbon Dioxide 22 mmol/L (22-29) 05/28/25 18:12 Anion Gap 17.3 (5-19) 05/28/25 18:12 BUN 35 mg/dL (8-23) H 05/28/25 18:12 Creatinine 1.6 mg/dL (0.5-0.9) H 05/28/25 18:12 GFR Calculation Not Reportable 05/28/25 18:12 Glucose 98 mg/dL (65-115) 05/28/25 18:12 POC Glucose 101 mg/dL (70-110) 05/28/25 16:33 Calculated Osmolality 290 mOsm/kg (285-295) 05/28/25 18:12 Calcium 8.7 mg/dL (8.5-10.5) 05/28/25 18:12 Total Bilirubin 0.5 mg/dL (0.15-1.2) 05/28/25 18:12 AST 30 U/L (0-32) 05/28/25 18:12 ALT 15 U/L (0-33) 05/28/25 18:12 Alkaline Phosphatase 142 U/L (35-105) H 05/28/25 18:12 Total Protein 6.4 g/dL (6.6-8.7) L 05/28/25 18:12 Albumin 3.5 g/dL (3.5-5.2) 05/28/25 18:12 Globulin 2.9 g/dL (1.3-4.6) 05/28/25 18:12 Urine Color Yellow (Yellow) 05/28/25 18:23 Urine Appearance Clear (CLEAR) 05/28/25 18:23 Urine pH 5.5 (5-7) 05/28/25 18:23 Ur Specific [place] 1.011 (1.005-1.030) 05/28/25 18:23 Urine Protein Negative (Negative) 05/28/25 18:23 Urine Glucose (UA) Negative (Normal) 05/28/25 18:23 Urine Ketones Negative (Negative) 05/28/25 18: Urine Blood Negative (Negative) 05/28/25 18:23 Urine Nitrate Negative (Negative) 05/28/25 18:23 Urine Bilirubin Negative (Negative) 05/28/25 18:23 Urine Urobilinogen 0.2 mg/dL (Negative) 05/28/25 18:23 Ur Leukocyte Esterase 1+ (Negative) A 05/28/25 18:23 Urine RBC 0-2 /hpf (0-2) 05/28/25 18:23 Urine WBC 0-5 /hpf (0-5) 05/28/25 18:23 Ur Squamous Epith Cells 0-5 /hpf (0-5) 05/28/25 18:23 Amorphous Sediment Not Reportable 05/28/25 18:23 Urine Bacteria None seen /hpf (NONE) 05/28/25 18:23 Hyaline Casts 23.98 /lpf 05/28/25 18:23 All radiology interpretation(s) finalized by discharge Discharge Plan Discharge Patient Disposition: Admitted As Inpatient Admit Provider: Johny Sylvester Clinical Impression: CVA (cerebral vascular accident), CHUY (acute kidney injury), Anemia, Hypertension, unspecified type Condition: Stable Discharge Diet: As Directed and Cardiac Discharge Activity: Increase activity as tolerated Coding Level of Care Code ED Advanced Practice Professional for Dandy Hancock NIH stroke score NIHSS Level Of Consciousness - 1a: 0 Level Of Consciousness Questions - 1b: Both Correct Level Of Consciousness Commands - 1c: Both Correct Best Gaze - 2: Normal Visual [place] - 3: No Visual Loss Facial Palsy - 4: Minor Paralysis Motor Arm Right - 5: No Drift Motor Arm Left - 5: No Drift Motor Leg Right - 6: No Drift Motor Leg Left - 6: No Drift Limb Ataxia - 7: Present In Two Limbs Sensory - 8: Mild To Moderate Loss Best Language - 9: No Aphasia Dysarthia - 10: Mild/Moderate Dysarthia Extinction And Inattention - 11: 0 Score Total Score: 5
[2025-05-28 18:21] LABS: Hematocrit 31.2 % (36-47); Hemoglobin 10.20 g/dL (11.27-16.99); Mean Corpuscular HGB Conc 32.7 g/dL (30-55); Mean Corpuscular Hemoglobin 29.2 pg (27-33); Mean Corpuscular Volume 89.4 fl (85-98); Nucleated Red Blood Cells % 0 %; Platelet Count 187 10^3/cmm (157-399); Red Blood Count 3.49 10^6/uL (3.85-5.65); White Blood Count 6.84 10^3/uL (3.29-11.43)
[2025-05-28 18:32] VITALS: BP 126/72; PULSE 101; O2SAT 98
[2025-05-28 18:33] LABS: Glucose Urine UA Negative (Normal); Nitrate Urine Negative (Negative); Specific Gravity, Urine 1.011 (1.005-1.030)
[2025-05-28 18:38] LABS: Add Urine Microscopic? YES; Universal Test for UA Present (0)
[2025-05-28 18:52] LABS: Alanine Aminotransferase 15 U/L (0-33); Albumin Level 3.5 g/dL (3.5-5.2); Alkaline Phosphatase 142 U/L (35-105); Anion Gap 17.3 (5-19); Aspartate Amino Transferase 30 U/L (0-32); Blood Urea Nitrogen 35 mg/dL (8-23); Calcium 8.7 mg/dL (8.5-10.5); Carbon Dioxide 22 mmol/L (22-29); Chloride 101 mmol/L (98-107); Globulin 2.9 g/dL (1.3-4.6); Glucose 98 mg/dL (65-115); Osmolality Calculated 290 mOsm/kg (285-295); Potassium 4.3 mmol/L (3.5-5.1); Sodium 136 mmol/L (136-145); Total Protein 6.4 g/dL (6.6-8.7)
[2025-05-28 20:22] VITALS: BP 129/62; PULSE 116; RESP 16; O2SAT 96
[2025-05-28 21:52] VITALS: BMI 23.1
[2025-05-28 21:53] VITALS: BP 137/64; PULSE 120; RESP 16; O2SAT 95
[2025-05-28 22:14] VITALS: BP 155/74; PULSE 118; RESP 16; TEMP 36.8; O2SAT 96
--- NOTE | 2025-05-28 22:29 | P.HP_ITS ---
Providers/Chief Complaint 2 Admitting Physician: Chris Pascual MD Primary Care Provider: Talya Pan MD Chief Complaint: stroke symptoms History of Present Illness Gladis Frausto is a 80 year old female with history significant for hypertension who presented with complaints of right sided weakness. Family is present and supplements the history. I am told the patient had a call from the home healthcare nurse who felt she did not sound well over the phone and recommended she to go to the ED for further evaluation. Family present report over the past 1-2 weeks, she has had slurred speech. Last known normal is reported about 1 week prior to presentation. Over the past 3 days, patient has been felt to be generally weakened and tired all the time. More recently, her right side has been notably more sluggish. No report of chest pain, shortness of breath, N/V/D or abdominal pain. No fevers or cough. Medications/Allergies Home Medications ?Medication ?Instructions ?Recorded ?Confirmed ?Last Taken ?Type ferrous fumarate 325 mg (106 mg 65 mg PO DAILY 0 05/29/25 05/28/25 08:00 History iron) tablet gabapentin 100 mg capsule 100 mg PO TID 01/14/2505/2905/28/25 08:00 History ketoconazole 2 % shampoo 1 applic topical .3 times a week 01/14/25 05/29/25 05/28/25 08:00 History PRN for the symptoms lisinopril 40 mg tablet 40 mg PO QDAY 01/14/2505/2905/28/25 08:00 History hydralazine 50 mg tablet 50 mg PO TID #240 tabs 02/0705/29/25 05/28/25 08:00 Rx mecobalamin (vitamin B12) 1,000 1,000 mcg sublingual D AILY 04/22/25 05/29/25 05/28/25 08:00 History mcg disintegrating tablet,sublingual aspirin 81 mg tablet 81 mg PO DAILY 05/29/25 1209/1805/28/25 08:00 History clobetasol 0.05 % topical cream 1 applic topical DAILY PRN Itching 05/29/25 05/29/25 05/28/25 08:00 History cyclobenzaprine 10 mg tablet 10 mg PO BEDTIME 05/29/25 05/29/25 05/28/25 08:00 History fluticasone 250 mcg-salmeterol 50 1 inh inhalation TRISHA LY 05/29/25 05/29/25 05/28/25 08:00 History mcg/dose blistr powdr for inhalation (Wixela Inhub) furosemide 20 mg tablet 20 mg PO DAILY 05/29/25 120 09/1805/28/25 08:00 History Allergies Allergy/AdvReac Type Severity Reaction Status Date / Time nitrofurantoin (From Allergy Intermediate ADR-Vomitin Verified 05/28/25 16:42 Macrobid) g amlodipine Allergy ADR-Vomitin Verified 05/28/25 16:42 g ciprofloxacin (From Cipro) Allergy ADR-Vomitin Verified 05/28/25 16:42 g meloxicam Allergy ADR-Vomitin Verified 05/28/25 16:42 g naproxen Allergy ADR-Vomitin Verified 05/28/25 16:42 g Penicillins Allergy ALGY-Difficulty Verified 05/28/25 16:42 Breathing sulfamethoxazole (From Allergy ADR-Vomitin Verified 05/28/25 16:42 Bactrim) g tramadol (From Ultram) Allergy ADR-Vomitin Verified 05/28/25 16:42 g trimethoprim (From Bactrim) Allergy ADR-Vomitin Verified 05/28/25 16:42 g PFSH Acute 2 PFSH: Medical History (Updated 05/29/25 @ 03:44 by Chris Pascual MD) Peripheral neuropathy History of blood transfusion Basal cell carcinoma of skin Hypertension, unspecified type Anemia Asthma Surgical History History of cholecystectomy open History of bladder suspension procedure History of Marty fundoplication History of bilateral cataract extraction History of colonoscopy History of lumbar discectomy History of total hysterectomy with bilateral salpingo-oophorectomy (BSO) benign path per report Family History Father Lung cancer Mother Anemia Peripheral vascular disease Aneurysm Social History Smoking and tobacco/nicotine status: never used tobacco/nicotine Quit status (tobacco/nicotine): has quit using Year quit tobacco: 1985 Alcohol intake: never Substance/Drug Use: never Household members: spouse Marital status: Marital status details: 55 years as of 2024 Number of children: 2 Current occupational status: retired 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: [employer] Special taylor needs: No Agree to transfusion: Yes Vitals/I&O/Wt Last Vital Signs Temp 98.2 F 05/28/25 22:14 Pulse 118 H 05/28/25 22:14 Resp 16 05/28/25 22:14 BP 155/74 05/28/25 22:14 Pulse Ox 96 05/28/25 22:14 O2 Del Method Room Air 05/28/25 22:14 Weight last 48 hrs Weight 55.429 kg Weight 52.163 kg Physical Exam 2 Const: COMMON NORMALS: no acute distress, patient oriented x3 and healthy appearing Resp: COMMON NORMALS: normal respiratory effort and clear to auscultation bilaterally Neuro: OTHER: Dehydrogenation Converter Helper stength on the right 2/5, 5/5 on the contralateral side. Right hip flexion 2/5, 5/5 on the contralateral side. No slurred speech. Skin: COMMON NORMALS: no rashes or lesions noted Data 05/28/25 18:12 05/28/25 18:12 A&P Assessment and plan 1. Cerebrovascular accident (CVA) of left basal ganglia: - Admit on telemetry - Check MRI in the AM - Echocardiogram - Continue statin and aspirin - Check lipid panel and A1c - Consult neurology in the AM - PT/OT/ST consults - May have diet after nursing bedside eval - Hold home hydralazine. BP shows adequate control. Restart if needed 2. CHUY (acute kidney injury): - Place on NS @ 75cc/hr - Recheck chemistry in the AM - Hold home lasix and lisinopril 3. Hypertension, unspecified type: - Hold home hydralazine. BP shows adequate control. Restart if needed - Hold lisinopril PDMP PDMP Reviewed: Not Reviewed Attestations 2 Medical Necessity Statement*: Patient will require greater than two midnights to evaluate and manage subacute CVA Coding Level of Care Code Acute Code for [facility] Fwd Diagnoses Cerebrovascular accident (CVA) of left basal ganglia I63.81 CHUY (acute kidney injury) N17.9 Hypertension, unspecified type I10 Hypertension type: unspecified
[2025-05-28] MEDS: heparin 5,000 unit/mL INJ 1 mL 5000 UNIT SUBCUT (22:58)
[2025-05-28 23:30] VITALS: BP 127/63; PULSE 91; RESP 18; TEMP 37; O2SAT 96
[2025-05-29] VITALS (10 sets, daily range): BP systolic 110–176; BP diastolic 50–76; PULSE 89–112; RESP 16–18; TEMP 36.3–37; O2SAT 96–98
[2025-05-29] MEDS: heparin 5,000 unit/mL INJ 1 mL 5000 UNIT SUBCUT ×3 (05:31→22:58)
[2025-05-29 06:34] LABS: Anion Gap 14.1 (5-19); Blood Urea Nitrogen 32 mg/dL (8-23); Calcium 8.5 mg/dL (8.5-10.5); Carbon Dioxide 24 mmol/L (22-29); Chloride 103 mmol/L (98-107); Cholesterol 100 mg/dL (0-200); Glucose 98 mg/dL (65-115); HDL Cholesterol 41 mg/dL (60-100); Osmolality Calculated 291 mOsm/kg (285-295); Potassium 4.1 mmol/L (3.5-5.1); Sodium 137 mmol/L (136-145); Triglycerides 62 mg/dL (0-150)
[2025-05-29 06:40] LABS: Estmated Average Glucose 85; Hemoglobin A1C 4.6 % (4.0-6.0)
--- NOTE | 2025-05-29 08:00 | MRR_ITS ---
PROCEDURE INFORMATION: Exam: MR Head Without Contrast Exam date and time: 05/29/2025 5:02 PM Age: 80 years old Clinical indication: Weakness, extremity; Right; History--cva eval, weakness on RT side side x 1 week with facial droop; Additional info: CVA evaluation TECHNIQUE: Imaging protocol: Magnetic resonance imaging of the head without contrast. COMPARISON: CT head wo con* [id number] 05/28/2025 5:34 PM FINDINGS: Brain: there is a acutely restricted diffusion throughout the entire left lentiform nucleus. No evidence of any acute hemorrhage. Correspondingly increased T2 signal in the left lentiform nucleus on FLAIR and T2 weighted imaging sequences indicating subacute infarction. The internal capsule seems to be largely spared. No masses. Mild patchy hypodensity in hemispheric white matter bilaterally most likely due to chronic microangiopathy. There is mild diffuse cerebral atrophy present, consistent with this patient's age. Cerebral ventricles: Normal. No ventriculomegaly. Bones: Unremarkable. Paranasal sinuses: Normal as visualized. No acute sinusitis. Mastoid air cells: Normal as visualized. No mastoid effusion. Orbital cavities: There have been bilateral lens replacements. Soft tissues: Unremarkable. MR/MR head wo con* [id number] IMPRESSION: Subacute nonhemorrhagic infarct of the left lentiform nucleus.
--- NOTE | 2025-05-29 08:38 | PC.CHAP ---
Pastoral Care Encounter/Spiritual Assessment Type of Contact [] Declined band top maker visit [] Patient/Family/Request visit [] Outpatient visit [] Follow-up visit [] Physician referral [] Code/Alert [x] Routine visit [] Staff referral [] Actively dying [] Patient sleeping [] Family support [] [] Out of room [] Palliative care [] [] Receiving care in room [] Pre-surgical visit [] Trauma [] Long length of stay [] ICU visit [] Other: Relational/Emotional Strength [x] Patient feels connected with others/family/visitors/staff [] Distress [] Loneliness/isolation [] Abandonment Spirituality of Patient [x] Person of [place] [] Attends Temple of their [place] [x] Believes in Prayer [] Reads Bible or Confucianism materials [] There are Spiritual issues to be addressed [employer] Demonstrator Interventions [x] Prayer [x] Active listening [x] Non-anxious presence [x] Spiritual/emotional support [] Crisis/trauma care [] Spiritual counseling [] Bereavement support [] Provided bereavement packet [] Provided Bible/devotional materials [] Provided toy/stuffed animal, coloring book to patient or family member [] Provided Communion [] Anointing/Procious [] Salvation [x] Completed spiritual assessment [] Other: Impact on Illness or Injury [] Angry [] Fearful [] Anxious [] Often cries [] Exhaustion [] Unable to work [] Unable to attend rastafarian [] Unable to walk/stand [] Unable to read [] Unable to drive [] Unable to eat/drink [] Unable to sleep [] Unable to be with family [] Patient intubated [] Other: Summary Time spent with patient 5 min
--- NOTE | 2025-05-29 13:31 | P.PN_ITS ---
Subjective 2 Subjective: Patient seen and examined, continues to have right-sided weakness. Discussed plan of care with family in the room. Neuro consulted. She states there has not been much improvement in her right-sided weakness as compared to yesterday however has been seen by physical therapy this morning already Vitals/I&O/Wt Last Vital Signs Temp 97.4 F L 05/29/25 11:31 Pulse 89 05/29/25 11:31 Resp 16 05/29/25 11:31 BP 176/76 05/29/25 11:31 Pulse Ox 97 05/29/25 11:31 O2 Del Method Room Air 05/29/25 11:31 05/28/25 05/29/25 05/29/25 22:59 06:59 14:59 Intake Total 500 / 500 300 / 800 1571.25 / 1571.25 Output Total 100 / 100 500 / 600 Balance 400 / 400 -200 / 200 1571.25 / 1571.25 Weight last 48 hrs Weight 58.06 kg Weight 55.429 kg Weight 52.163 kg Physical Exam 2 Const: COMMON NORMALS: no acute distress, patient oriented x3 and healthy appearing Resp: COMMON NORMALS: normal respiratory effort and clear to auscultation bilaterally AUSCULTATION: clear to auscultation bilaterally Neuro: COMMON NORMALS: patient oriented x3 OTHER: Seo Executive stength on the right 2/5, 5/5 on the contralateral side. Right hip flexion 2/5, 5/5 on the contralateral side. No slurred speech. Skin: COMMON NORMALS: no rashes or lesions noted GENERAL SKIN EXAM: no rashes or lesions noted Data 05/28/25 18:12 05/29/25 05:54 A&P Assessment and plan 1. Cerebrovascular accident (CVA) of left basal ganglia: - Continue telemetry. MRI and echocardiogram pending. Continue statin and aspirin. - Check lipid panel and A1c - Neuro consulted. - PT/OT/ST consults - May have diet after nursing bedside eval - Hold home hydralazine. BP shows adequate control. Allow for permissive hypertension for now. 2. CHUY (acute kidney injury): - Place on NS @ 75cc/hr - Recheck chemistry in the AM - Hold home lasix and lisinopril - Creatinine has improved to 1.3 from 1.6. Continue trending. Continue IV fluids 3. Hypertension, unspecified type: - Hold home hydralazine. BP shows adequate control. Restart if needed - Hold lisinopril Also had hyponatremia which improved. Sodium up to 137 now. PDMP PDMP Reviewed: Not Reviewed Attestations 2 Medical Necessity Statement*: MRI, echo, neuro consult pending. Coding Level of Care Code Acute Code for [facility] Fwd Diagnoses Cerebrovascular accident (CVA) of left basal ganglia I63.81 CHUY (acute kidney injury) N17.9 Hypertension, unspecified type I10 Hypertension type: unspecified
--- NOTE | 2025-05-29 17:25 | PC.SLP ---
Pt is at MRI, PROTOTYPER unable to asses at this time. PROTOTYPER will attempt assessment tomorrow.
--- NOTE | 2025-05-29 19:19 | PM.CONSULT ---
Providers/Reason For Consult Consulting Physician/Specialty*: Dr. Sol Jeffery Reason for Consult*: Weakness Attending Physician: Jess Bond MD Primary Care Provider: Talya Pan MD History of Present Illness History of Present Illness Gladis Frausto is a 80 year old woman who came to the emergency department 05/28/2025 complaining of right sided weakness and facial droop for the past week. The family felt that she had had a stroke. In keeping with that diagnosis the patient had attenuation in the left basal ganglia that was consistent with a subacute stroke and consistent with her findings. Dr. Rich found an NIH stroke scale score of 5 because of ataxia. For some reason the hospitalist ordered an MRI scan of the brain. Not surprisingly, MRI confirms what was seen on the CAT scan which is a left basal ganglia stroke. I was asked to consult. The patient says that her just left so I missed him today but he is the one who brought her to the emergency department because of her right sided weakness. The patient is a little unclear about when her symptoms started and Dr. Rich obtained a history that her symptoms have been waxing and waning for over a week. The patient reports that she is doing much better. She says that her memory is good. 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 Her was here with her today but he is staying with their daughter here in [place]. Review of Systems Narrative: She denies headaches. No numbness. She has had longstanding problems with her blood pressure. She has venous stasis dermatitis in her legs. She has had some swelling in her legs from venous insufficiency and has a history of peripheral neuropathy. She is not diabetic. She does not smoke. She gets a lot of exercise. Medications/Allergies Home Medications ?Medication ?Instructions ?Recorded ?Confirmed ?Last Taken ?Type ferrous fumarate 325 mg (106 mg 65 mg PO DAILY 04/21/20 05/29/25 05/28/25 08:00 History iron) tablet gabapentin 100 mg capsule 100 mg PO TID 01/14/25 05/29/25 05/28/25 08:00 History ketoconazole 2 % shampoo 1 applic topical .3 times a week 01/14/25 05/29/25 05/28/25 08:00 History PRN for the symptoms lisinopril 40 mg tablet 40 mg PO QDAY 01/14/25 05/29/25 05/28/25 08:00 History hydralazine 50 mg tablet 50 mg PO TID #240 tabs 02/07/25 05/29/25 05/28/25 08:00 Rx mecobalamin (vitamin B12) 1,000 1,000 mcg sublingual DAILY 04/22/25 05/29/25 05/28/25 08:00 History mcg disintegrating tablet,sublingual aspirin 81 mg tablet 81 mg PO DAILY 05/29/25 05/29/25 05/28/25 08:00 History clobetasol 0.05 % topical cream 1 applic topical DAILY PRN Itching 05/29/25 05/29/25 05/28/25 08:00 History cyclobenzaprine 10 mg tablet 10 mg PO BEDTIME 05/29/25 05/29/25 05/28/25 08:00 History fluticasone 250 mcg-salmeterol 50 1 inh inhalation DAILY 05/29/25 05/29/25 05/28/25 08:00 History mcg/dose blistr powdr for inhalation (Wixela Inhub) furosemide 20 mg tablet 20 mg PO DAILY 05/29/25 05/29/25 05/28/25 08:00 History Allergies Allergy/AdvReac Type Severity Reaction Status Date / Time nitrofurantoin (From Allergy Intermediate ADR-Vomitin Verified 05/28/25 16:42 Macrobid) g amlodipine Allergy ADR-Vomitin Verified 05/28/25 16:42 g ciprofloxacin (From Cipro) Allergy ADR-Vomitin Verified 05/28/25 16:42 g meloxicam Allergy ADR-Vomitin Verified 05/28/25 16:42 g naproxen Allergy ADR-Vomitin Verified 05/28/25 16:42 g Penicillins Allergy ALGY-Difficulty Verified 05/28/25 16:42 Breathing sulfamethoxazole (From Allergy ADR-Vomitin Verified 05/28/25 16:42 Bactrim) g tramadol (From Ultram) Allergy ADR-Vomitin Verified 05/28/25 16:42 g trimethoprim (From Bactrim) Allergy ADR-Vomitin Verified 05/28/25 16:42 g Current Medications Generic Name Dose Route Start Last Admin Trade Name Freq PRN Reason Stop Dose Admin Aspirin 81 mg 05/29/25 05:00 05/29/25 05:29 Aspirin 81 Mg Ec Tablet PO 81 mg DAILY SHERYL Administration Atorvastatin Calcium 40 mg 05/28/25 22:45 05/28/25 22:58 Atorvastatin 40 Mg Tablet PO 40 mg BEDTIME SHERYL Administration Heparin Sodium (Porcine) 5,000 unit 05/28/25 22:30 05/29/25 13:46 Heparin 5,000 Unit/Ml Inj 1 Ml SUBCUT 5,000 unit Q8H SHERYL Administration Sodium Chloride 1,000 mls @ 75 mls/hr 05/28/25 22:45 05/29/25 11:56 Sodium Chloride 0.9% IV 75 mls/hr .[id number] SHERYL Administration PFSH Acute PFSH: Medical History Peripheral neuropathy History of blood transfusion Basal cell carcinoma of skin Hypertension, unspecified type Anemia Asthma Surgical History History of cholecystectomy open History of bladder suspension procedure History of Marty fundoplication History of bilateral cataract extraction History of colonoscopy History of lumbar discectomy History of total hysterectomy with bilateral salpingo-oophorectomy (BSO) benign path per report Family History Father Lung cancer Mother Anemia Peripheral vascular disease Aneurysm Social History Smoking and tobacco/nicotine status: never used tobacco/nicotine Quit status (tobacco/nicotine): has quit using Year quit tobacco: 1985 Alcohol intake: never Substance/Drug Use: never Household members: spouse Marital status: Marital status details: 55 years as of 2024 Number of children: 2 Current occupational status: retired 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: [employer] Special taylor needs: No Agree to transfusion: Yes Vitals/I&O/Wt Last Vital Signs Temp 97.4 F L 05/29/25 15:43 Pulse 107 H 05/29/25 15:43 Resp 17 05/29/25 15:43 BP 176/76 05/29/25 15:43 Pulse Ox 98 05/29/25 15:43 O2 Del Method Room Air 05/29/25 15:43 05/29/25 05/29/25 05/29/25 06:59 14:59 22:59 Intake Total 300 / 800 1571.25 / 1571.25 480 / 2051.25 Output Total 500 / 600 400 / 400 Balance -200 / 200 1571.25 / 1571.25 80 / 1651.25 Weight last 48 hrs Weight 128 lb Weight 122 lb 3.2 oz Weight 115 lb Physical Exam Narrative: GENERAL: The patient was well-nourished with a healthy appearance and appropriately groomed in hospital attire. MENTAL STATUS: She could not remember what day it was but she is otherwise oriented. She was able to remember the sequence of events but was somewhat vague about her neurologic symptoms. CRANIAL NERVES: Visual abraham were full to confrontation, direct and consensual. Extraocular movements were full without nystagmus. Flattening of the right nasolabial fold noted. MOTOR: Mild clumsiness of fine movements in the right hand but power was strong. No drift. No weakness in the legs. She was able to get herself out of the bed and stand up. SENSATION: Touch intact in all 4 extremities COORDINATION: Zbsjaw-bezw-fhpwlv and ixpp-pxuq-nsnp performed smoothly. DEEP TENDON REFLEXES: 2/4 throughout. GAIT: She was able to march in place at the bedside HEENT: She looks younger than her age . NECK: Carotid upstroke was strong bilaterally without bruits. The thyroid was not enlarged and there were no palpable lymph nodes. CHEST: Clear to auscultation. CARDIOVASCULAR: The heart sounds were normal without murmur or gallop. Regular rate and rhythm. EXTREMITIES: Trace edema in both pretibial regions. She has pitting and a macular rash over the legs with scaling Data 05/28/25 18:12 05/29/25 05:54 CT Head: My impression: Subacute subcortical stroke on the left including the caudate and anterior limb of the internal capsule.. The diffusion weighted MRI shows an identical region of ischemia as the CAT scan demonstrates A&P Assessment and plan 1. Cerebrovascular accident (CVA) of left basal ganglia: She presented with a left basal ganglia stroke that was already evident on CT scan and too late for thrombolytic therapy or embolectomy. It would be useful to have CT angiogram to determine whether she has a large or small vessel stenosis or occlusion in any case for prognostic reasons and to guide further treatment. Once again I am not saying that she would be a candidate for any form of aggressive treatment at this point she would not but we need to know how long to continue antiplatelet therapy, etc. I went over the stroke book with her including risk factors for stroke. It is essential that she continue to work with Dr. Pan to keep her blood pressure under good control and she is enthusiastic about that because she likes Dr. Pan. She already is a non-smoker and physically active. Her fibromyalgia slows her down somewhat and so walking program might be helpful for her fibromyalgia as well. Behavioral changes have been reported in patients with left basal ganglia stroke including aprosodia and changes in grooming and other behaviors. I noticed that the patient was a little bit flat and somewhat vague on some of her history but no other behavioral anomalies were detected but it will be important to ask her family. On my examination this patient could walk well and after CT angiogram she could probably complete the rest of her workup as an outpatient including echocardiogram and 30-day heart monitor. She should be discharged on aspirin, Plavix 75 mg and atorvastatin 40 mg Plan: I will be glad to see her in my office for follow-up PDMP PDMP Reviewed: Not Reviewed Consult Attestations Medical Necessity Statement: Acute stroke with fluctuating right sided weakness Coding Level of Care Code Acute Code for [facility] Fwd Diagnoses Cerebrovascular accident (CVA) of left basal ganglia I63.81
--- NOTE | 2025-05-29 20:42 | CTR_ITS ---
PROCEDURE INFORMATION: Exam: CTA Head With Contrast, Arteriography Exam date and time: 05/29/2025 9:08 PM Age: 80 years old Clinical indication: Other: Stroke; Additional info: Acute stroke TECHNIQUE: Imaging protocol: Computed tomographic angiography of the head with contrast. Exam focused on the arteries. 3D rendering (Not supervised by radiologist): MIP and/or 3D reconstructed images were created by the technologist. Radiation optimization: All CT scans at this facility use at least one of these dose optimization techniques: automated exposure control; mA and/or kV adjustment per patient size (includes targeted exams where dose is matched to clinical indication); or iterative reconstruction. Contrast material: OMNI 350; Contrast volume: 100 ml; Contrast route: INTRAVENOUS (IV); COMPARISON: MR head wo con* [id number] 05/29/2025 5:02 PM RADIATION DOSE METRICS: Total DLP (mGy-cm): 875.1 FINDINGS: ANTERIOR CIRCULATION: Right internal carotid artery: Intracranial segment is patent with no significant stenosis. No aneurysm. Right middle cerebral artery: No occlusion or significant stenosis. No aneurysm. Right anterior cerebral artery: No occlusion or significant stenosis. No aneurysm. Left internal carotid artery: Intracranial segment is patent with no significant stenosis. No aneurysm. Left middle cerebral artery: No occlusion or significant stenosis. No aneurysm. Left anterior cerebral artery: No occlusion or significant stenosis. No aneurysm. POSTERIOR CIRCULATION: Right vertebral artery: No occlusion or significant stenosis. No aneurysm. Left vertebral artery: No occlusion or significant stenosis. No aneurysm. Basilar artery: No occlusion or significant stenosis. No aneurysm. Right posterior cerebral artery: No occlusion or significant stenosis. No aneurysm. Left posterior cerebral artery: No occlusion or significant stenosis. No aneurysm. Brain: No definite mass, mass effect, or midline shift. Cerebral ventricles: No ventriculomegaly. Bones/joints: Unremarkable. No acute fracture. Soft tissues: Unremarkable. PROCEDURE INFORMATION: Exam: CTA Neck With Contrast Exam date and time: 05/29/2025 9:08 PM Age: 80 years old Clinical indication: Other: Stroke; Additional info: Acute stroke TECHNIQUE: Imaging protocol: Computed tomographic angiography of the neck with contrast. Exam focused on the cervical segments of the vasculature. 3D rendering (Not supervised by radiologist): MIP and/or 3D reconstructed images were created by the technologist. Radiation optimization: All CT scans at this facility use at least one of these dose optimization techniques: automated exposure control; mA and/or kV adjustment per patient size (includes targeted exams where dose is matched to clinical indication); or iterative reconstruction. Contrast material: OMNI 350; Contrast volume: 100 ml; Contrast route: INTRAVENOUS (IV); COMPARISON: MR head lexy valdivia* [id number] 05/29/2025 5:02 PM RADIATION DOSE METRICS: Total DLP (mGy-cm): 875.1 FINDINGS: Right common carotid artery: No stenosis. No dissection or occlusion. Right internal carotid artery: Moderate stenosis proximal right internal carotid artery image 134 series 9 and image 100 series 17. Multifocal zdpv-xg-rfwhgtip stenosis cavernous right internal carotid artery. Right external carotid artery: No occlusion or stenosis of the origin. Left common carotid artery: No stenosis. No dissection or occlusion. Left internal carotid artery: Moderate stenosis proximal left internal carotid artery, image 138 series 9 and image 34 series 17. Multifocal pgep-qc-okowvlzs stenosis cavernous left internal carotid artery. Left external carotid artery: No occlusion or stenosis of the origin. Right vertebral artery: No stenosis. No dissection or occlusion. Left vertebral artery: No stenosis. No dissection or occlusion. Soft tissues: Normal. No significant soft tissue swelling. Bones/joints: No acute fracture. CT/CT angio headneck* [id number] IMPRESSION: No large vessel stenosis or occlusion. IMPRESSION: 1. No large vessel occlusions. 2. Moderate stenoses of the origins of the right and left internal carotid arteries. 3. Variably rpgm-ei-zgfyyfph multifocal stenoses in the cavernous internal carotid arteries bilaterally. REFERENCES: NASCET CRITERIA. The degree of stenosis in the cervical segment of the internal carotid artery is based on NASCET criteria. Normal is no stenosis. Mild is less than 50% stenosis. Moderate is 50-69% stenosis. Severe is 70% to 99% stenosis. Total occlusion is no detectable patent lumen.
[2025-05-29] MEDS: iohexol 350 mg/mL 500 mL Btl (per mL) IV (21:14)
--- NOTE | 2025-05-29 22:30 | USCV_ITS ---
Gladis Frausto Age: 80 Gender: F : 1945 Exam Date: 05/29/2025 02:22 Ordering Phys: Chris Pascual MD Technologist: DARRYL Exam Location: [facility] [place] Indication: acute stroke BP: 155 / 74 HR: 109 Rhythm: Sinus rhythm with episodes of Atrial fibrillation Technical Quality: Adequate MEASUREMENTS (Male / Female) Normal Values 2D ECHO LV Diastolic Diameter PLAX 3.3 cm 4.2 - 5.9 / 3.9 - 5.3 cm IVS Diastolic Thickness 1.4 cm 0.6 - 1.0 / 0.6 - 0.9 cm IVS Systolic Thickness 1.5 cm LVPW Diastolic Thickness 1.1 cm 0.6 - 1.0 / 0.6 - 0.9 cm LVPW Systolic Thickness 1.7 cm LVOT Diameter 1.4 cm LV Ejection Fraction 2D Teich 56.0 % LV Ejection Fraction MOD 4C 61.0 % LV Ejection Fraction MOD 2C 63.5 % LV Ejection Fraction 2C AL 66.1 % LA Diameter 3.8 cm Aorta at Sinotubular Diameter 2.5 cm IVC Diameter 1.2 cm M-MODE LA Ao Ratio MM 1.4 AV Cusp Separation MM 1.1 cm DOPPLER AV Peak Velocity 111.0 cm/s MV Peak Velocity 185.0 cm/s MV Area PHT 4.0 cm squared Mitral E to A Ratio 0.6 TV Peak Velocity 261.0 cm/s TR Peak Velocity 274.0 cm/s TR Peak Gradient 30.0 mmHg TV Peak E Velocity 58.0 cm/s FINDINGS Left Ventricle Normal left ventricular size and systolic function, EF 61%. Mild left ventricular hypertrophy. No regional wall motion abnormalities. Grade I/IV diastolic dysfunction (abnormal relaxation filling pattern), normal to mildly elevated filling pressures. Right Ventricle Normal right ventricular size and systolic function. Right Atrium Normal right atrial size. Left Atrium Moderately increased left atrial size. IA Septum . Lipomatous atrial septum. Mitral Valve Moderate mitral annular calcification. Trace to mild mitral valve regurgitation. Aortic Valve Trace aortic valve regurgitation. Tricuspid Valve Trace to mild tricuspid valve regurgitation. Estimated pulmonary artery peak systolic pressure 33 mmHg Pulmonic Valve No gross abnormalities noted Pericardium No pericardial effusion. Aorta Normal aortic annulus size. IVC Normal inferior vena cava. CONCLUSIONS Normal left ventricular size and systolic function, EF 61%. Mild left ventricular hypertrophy. No regional wall motion abnormalities. Grade I/IV diastolic dysfunction (abnormal relaxation filling pattern), normal to mildly elevated filling pressures. Moderately increased left atrial size. . Lipomatous atrial septum. Moderate mitral annular calcification. Trace to mild mitral valve regurgitation. Trace aortic valve regurgitation. Trace to mild tricuspid valve regurgitation. Estimated pulmonary artery peak systolic pressure 33 mmHg. There is no pericardial effusion. There are no intracardiac masses. Compared to the study from 02/12/2025, there may not be a significant change. Dr Sherri Corrales MD [facility] (Electronically Signed) Final Date: 29 May 2025 09:07 S
[2025-05-30] VITALS: BP 139/65; PULSE 91; RESP 16; TEMP 36.6; O2SAT 96
[2025-05-30 04:00] VITALS: BP 144/74; PULSE 89; RESP 16; TEMP 36.7; O2SAT 96
[2025-05-30] MEDS: heparin 5,000 unit/mL INJ 1 mL 5000 UNIT SUBCUT (06:02)
[2025-05-30 07:28] VITALS: BP 159/69; PULSE 82; RESP 16; TEMP 36.3; O2SAT 96
[2025-05-30 11:23] VITALS: BP 184/72; PULSE 86; RESP 18; TEMP 36.3; O2SAT 97
[2025-05-30 12:02] VITALS: BP 150/72; PULSE 78; O2SAT 98
--- NOTE | 2025-07-05 16:23 | PM.DCS ---
Discharge Providers Date of Admission: 05/28/25 18:46 Date of Discharge: 05/30/2025 Attending Provider at Admission: Johny Sylvester MD Attending Provider at Discharge: Jess Bond MD Primary Care Provider: Talya Pan MD Diagnoses at Discharge Discharge Diagnosis 1. Cerebrovascular accident (CVA) of left basal ganglia: Reason for Visit Reason for Visit: stroke symptoms Hospital Course Hospital Course Patient is a 80-year-old female presented to the hospital with complaints of right-sided weakness and facial droop. she was admitted as part of stroke workup and CT scan showed separate elevation and therefore g. MRI of the brain was done and showed attenuation in the left basal ganglia that was consistent with a subacute stroke and consistent with her findings. Neurology was consulted. Patient symptoms resolved and ataxia resolved. She could walk. Neurology recommending aspirin Plavix and atorvastatin. Scripts have been provided. Patient to follow-up with neuro outpatient. Patient is tolerating diet okay and after allowing an issue. Permissive hypertension now blood pressure better controlled. Outpatient workup to include echocardiogram and 30-day heart monitor. Dr. Jeffery stated she will follow-up with Initially had a On presentation which is now improved with IV fluids. Follow-up with PCP outpatient. Hyponatremia has resolved. Rest of the home medications resumed, currently medically stable for discharge to follow-up with PCP and neurology outpatient Physical Exam Narrative: OMMON NORMALS: no acute distress, pa tient oriented x3 and healthy appear ing Resp: COMMON NORMALS: no rmal respiratory e ffort and clear to auscultation bila terally AUSCULTAT ION: clear to ausc ultation bilateral ly Neuro: COMMON NORMALS: pa tient oriented x3 OTHER: Casting Sorter steff ngth on the right 2/5, 5/5 on the co ntralateral side. Right hip flexion 2/5, 5/5 on the co ntralateral side. No slurred speech. Skin: COMMON NORMALS: no rashes or lesions noted GENERAL SK IN EXAM: no rashes or lesions noted Discharge Data Studies Completed and Pending Completed Studies During Hospitalization Category Date Time Status CT head wo con* [id number] Stat Cat Scan 05/28/25 17:15 Completed CTA head neck [CT angio headneck* [id number]] Routine Cat Scan 05/29/25 20:42 Completed MR head wo con* [id number] Routine MRI 05/29/25 08:00 Completed CV. echo complete* [id number] Routine Ultrasound 05/29/25 22:30 Completed Radiology Impressions Head CT 05/28/25 17:15 IMPRESSION: Age-indeterminate region of decreased attenuation in the left basal ganglia. Correlate clinically for symptoms of acute or subacute stroke. No priors to compare. Otherwise evaluation with CTA or MRI is recommended. ADDENDUM: 05/28/25 1800 THIS REPORT CONTAINS FINDINGS THAT MAY BE CRITICAL TO PATIENT CARE. The findings were verbally communicated via telephone conference with CLEM Marcos 557 pm [employer] on 05/28/2025. The findings were acknowledged and understood. Head MRI 05/29/25 08:00 IMPRESSION: Subacute nonhemorrhagic infarct of the left lentiform nucleus. Head/Neck CTA 05/29/25 20:42 IMPRESSION: No large vessel stenosis or occlusion. IMPRESSION: 1. No large vessel occlusions. 2. Moderate stenoses of the origins of the right and left internal carotid arteries. 3. Variably [id number]-[id number] multifocal stenoses in the cavernous internal carotid arteries bilaterally. REFERENCES: NASCET CRITERIA. The degree of stenosis in the cervical segment of the internal carotid artery is based on NASCET criteria. Normal is no stenosis. Mild is less than 50% stenosis. Moderate is 50-69% stenosis. Severe is 70% to 99% stenosis. Total occlusion is no detectable patent lumen. Laboratory Results WBC 6.84 10^3/uL (3.29-11.43) 05/28/25 18:12 RBC 3.49 10^6/uL (3.85-5.65) L 05/28/25 18:12 Hgb 10.20 g/dL (11.27-16.99) L 05/28/25 18:12 Hct 31.2 % (36-47) L 05/28/25 18:12 MCV 89.4 fl (85-98) 05/28/25 18:12 MCH 29.2 pg (27-33) 05/28/25 18:12 MCHC 32.7 g/dL (30-55) 05/28/25 18:12 RDW 13.6 % (12.1-15.1) 05/28/25 18:12 Plt Count 187 10^3/cmm (157-399) 05/28/25 18:12 MPV 9.3 fL (7.4-10.4) 05/28/25 18:12 Neut % (Auto) 59.9 % 05/28/25 18:12 Lymph % (Auto) 22.4 % 05/28/25 18:12 [place] % (Auto) 14.2 % 05/28/25 18:12 Eos % (Auto) 2.5 % 05/28/25 18:12 Baso % (Auto) 0.7 % 05/28/25 18:12 Neut # (Auto) 4.10 10^3/uL (1.8-7.7) 05/28/25 18:12 Lymph # (Auto) 1.5 10^3/uL (0.8-4.8) 05/28/25 18:12 [place] # (Auto) 1.0 10^3/uL (0.2-0.9) H 05/28/25 18:12 Eos # (Auto) 0.2 10^3/uL (0.0-0.8) 05/28/25 18:12 Baso # (Auto) 0.1 10^3/uL (0.0-0.1) 05/28/25 18:12 Nucleated RBC % (auto) 0 % 05/28/25 18:12 Nucleated RBCs # 0.0 /100WBC 05/28/25 18:12 Sodium 137 mmol/L (136-145) 05/29/25 05:54 Potassium 4.1 mmol/L (3.5-5.1) 05/29/25 05:54 Chloride 103 mmol/L (98-107) 05/29/25 05:54 Carbon Dioxide 24 mmol/L (22-29) 05/29/25 05:54 Anion Gap 14.1 (5-19) 05/29/25 05:54 BUN 32 mg/dL (8-23) H 05/29/25 05:54 Creatinine 1.3 mg/dL (0.5-0.9) H 05/29/25 05:54 GFR Calculation Not Reportable 05/29/25 05:54 Glucose 98 mg/dL (65-115) 05/29/25 05:54 POC Glucose 101 mg/dL (70-110) 05/28/25 16:33 Estimat Average Glucose 85 05/29/25 05:54 Hemoglobin A1c 4.6 % (4.0-6.0) 05/29/25 05:54 Calculated Osmolality 291 mOsm/kg (285-295) 05/29/25 05:54 Calcium 8.5 mg/dL (8.5-10.5) 05/29/25 05:54 Total Bilirubin 0.5 mg/dL (0.15-1.2) 05/28/25 18:12 AST 30 U/L (0-32) 05/28/25 18:12 ALT 15 U/L (0-33) 05/28/25 18:12 Alkaline Phosphatase 142 U/L (35-105) H 05/28/25 18:12 Total Protein 6.4 g/dL (6.6-8.7) L 05/28/25 18:12 Albumin 3.5 g/dL (3.5-5.2) 05/28/25 18:12 Globulin 2.9 g/dL (1.3-4.6) 05/28/25 18:12 Triglycerides 62 mg/dL (0-150) 05/29/25 05:54 Cholesterol 100 mg/dL (0-200) 05/29/25 05:54 LDL Cholesterol, Calc 47 mg/dL (50-129) L 05/29/25 05:54 HDL Cholesterol 41 mg/dL (60-100) L 05/29/25 05:54 LDL/HDL Ratio 1.15 RATIO (0.00-3.22) 05/29/25 05:54 Cholesterol/HDL Ratio 2.44 mg/dL (0.0-4.40) 05/29/25 05:54 Urine Color Yellow (Yellow) 05/28/25 18:23 Urine Appearance Clear (CLEAR) 05/28/25 18:23 Urine pH 5.5 (5-7) 05/28/25 18:23 Ur Specific [place] 1.011 (1.005-1.030) 05/28/25 18:23 Urine Protein Negative (Negative) 05/28/25 18:23 Urine Glucose (UA) Negative (Normal) 05/28/25 18:23 Urine Ketones Negative (Negative) 05/28/25 18:23 Urine Blood Negative (Negative) 05/28/25 18:23 Urine Nitrate Negative (Negative) 05/28/25 18:23 Urine Bilirubin Negative (Negative) 05/28/25 18:23 Urine Urobilinogen 0.2 mg/dL (Negative) 05/28/25 18:23 Ur Leukocyte Esterase 1+ (Negative) A 05/28/25 18:23 Urine RBC 0-2 /hpf (0-2) 05/28/25 18:23 Urine WBC 0-5 /hpf (0-5) 05/28/25 18:23 Ur Squamous Epith Cells 0-5 /hpf (0-5) 05/28/25 18:23 Amorphous Sediment Not Reportable 05/28/25 18:23 Urine Bacteria None seen /hpf (NONE) 05/28/25 18:23 Hyaline Casts 23.98 /lpf 05/28/25 18:23 Vitals Last Vital Signs Temp 97.4 F L 05/30/25 11:23 Pulse 78 05/30/25 12:02 Resp 18 05/30/25 11:23 BP 150/72 05/30/25 12:02 Pulse Ox 98 05/30/25 12:02 O2 Del Method Room Air 05/30/25 11:23 Discharge Plan Discharge Patient Disposition: Home Health Service Condition: Stable Prescriptions: Continued ferrous fumarate 325 mg (106 mg iron) tablet 65 mg PO DAILY ketoconazole 2 % shampoo 1 applic topical .3 times a week PRN (Reason: for the symptoms ) gabapentin 100 mg capsule 100 mg PO TID lisinopril 40 mg tablet 40 mg PO QDAY mecobalamin (vitamin B12) 1,000 mcg tablet,disintegrating 1,000 mcg sublingual DAILY Rx Instructions: place tablet under tongue and allow to dissolve for at least30 secs before swallowing cyclobenzaprine 10 mg Tablet 10 mg PO BEDTIME clobetasol 0.05 % Cream 1 applic TOPICAL DAILY PRN (Reason: Itching) fluticasone propion-salmeterol [Wixela Inhub] 250-50 mcg/dose blister with device 1 inh inhalation DAILY No Action atorvastatin 40 mg tablet 40 mg PO BEDTIME Qty: 30 0RF clopidogrel [Plavix] 75 mg tablet 75 mg PO DAILY Qty: 60 0RF cephalexin 500 mg capsule 500 mg PO Q12H Qty: 14 0RF furosemide 40 mg tablet See Rx Instructions .ROUTE .COMPLEX Qty: 30 0RF Dose Instruction: TAKE 1 TABLET BY MOUTH ONCE DAILY NEEDED FOR EDEMA Rx Instructions: TAKE 1 TABLET BY MOUTH ONCE DAILY NEEDED FOR EDEMA hydralazine 50 mg tablet 50 mg PO BID Qty: 240 0RF Director [facility] [place] for DC: Neurology Discharge Order = DC NOW: Discharge Order (Routine); Ordered 05/30/25 Ordered By: Jess Bond Referrals: [facility] ([facility]) [Outside] Sol Jeffery MD [Physician, Neurology] Referral Note: We have notified your physician's clinic of the need for a follow-up appointment to be scheduled. If you have not heard from them within the next 2 business days, please call them directly. Talya Pan MD [Primary Care Provider, Family Practice] Referral Note: We have notified your physician's clinic of the need for a follow-up appointment to be scheduled. If you have not heard from them within the next 2 business days, please call them directly. Discharge Diet: As Directed and Cardiac Discharge Activity: Increase activity as tolerated Patient Instructions: Atorvastatin (By mouth), Clopidogrel (By mouth), Ischemic Stroke (DC), Opioid Safety, Patient Portal & Moris Instructions Discharge Attestations Time Spent in Discharge Care*: greater than 30 min Quality Metrics Clinical Quality Measures [ Cerebrovascular Accident { Contraindication to Antithrombotic: None; antithrombotic prescribed; Contraindication to Anticoagulation: None; anticoagulation prescribed; Contraindication to Statin: None; Statin prescribed;}] Coding Level of Care Code Acute Code for [facility] Fwd Diagnoses Cerebrovascular accident (CVA) of left basal ganglia I63.81
== END 2025-05-30 12:03 | disposition home health service (06) | DRG 65 ==
LOC: ER 17:35 → MEDSURG 19:54
PROVIDERS: Family Medicine; Admitting Provider Internal Medicine; Emergency Provider Family Medicine; PCP Family Medicine; Visit Provider Internal Medicine
DX: I63.89 Other cerebral infarction (principal); N17.9 Acute kidney failure, unspecified; R29.810 Facial weakness; R27.0 Ataxia, unspecified; R47.1 Dysarthria and anarthria; G62.9 Polyneuropathy, unspecified; I10 Essential (primary) hypertension; J45.909 Unspecified asthma, uncomplicated; D64.9 Anemia, unspecified; M79.7 Fibromyalgia; I87.2 Venous insufficiency (chronic) (peripheral); Z98.1 Arthrodesis status; Z79.02 Long term (current) use of antithrombotics/antiplatelets; Z79.82 Long term (current) use of aspirin; Z88.0 Allergy status to penicillin; Z88.2 Allergy status to sulfonamides; Z85.828 Personal history of other malignant neoplasm of skin; Z90.49 Acquired absence of other specified parts of digestive tract; Z90.710 Acquired absence of both cervix and uterus
CPT/HCPCS: 36415; 36416; 70450; 70496; 70498; 70551; 80048; 80053; 80061; 81001; 82962; 83036; 85025; 92523; 92610; 93005; 93306; 96372; 97110; 97116; 97161; 97165; 99285; J1644; J7030; J9999